=== PATIENT | female | born 1955 | race Caucasian/White ===

== ENCOUNTER → 2016-09-15 | Outpatient (CLI) | payer MEDICARE, MEDICAID ==
[~2016-09-15] MED LIST: ACET-732 PO; ALBU8.5H5 IH; ASPI325T PO; ATOR40TA64 PO; CANA300T PO; DILT180C63 PO; FURO80TA88 PO; INSU100V12 SQ; IOHEXOL 300 MG/ML 100ml INJECTION ONE; LEVA1.253 IH; LORA2TAB2 PO; METF500T7 PO; NAPR220C11 PO; NORMAL SALINE 100 ML ONE; PHEN100C84 PO; POTA20TA87 PO; ROFL500T PO; SALINE FLUSH 10ml SYRINGE ONE; ZINC50TA4 PO
--- NOTE | 2016-09-15 13:16 | DI ---
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 Coronal and sagittal two-dimensional reformats. Automated Exposure Control and Iterative Reconstruction dose reducing techniques were utilized. Contrast: Omnipaque 300 100 mL Findings: Chest: Lungs are stable with some linear scarring in the right middle lobe and left lower lobe. No consolidative pneumonia, pleural effusion or pneumothorax. No new pulmonary nodule or mass appreciated. The central airways are patent. Thyroid gland appears normal. Enlarged right axillary lymph node on axial image #21 measures 1.7 cm in short axis dimension. This is enlarged from the comparison study when it measured 1 cm in short axis dimension. It is however the same size as on the 2015 exam. No other pathologically enlarged axillary or mediastinal lymph nodes. Great vessels are stable. Moderate pericardial effusion is larger than the prior exam. Abdomen: The liver appears normal. The gallbladder is surgically absent. The spleen, pancreas and kidneys are within normal limits. Bilateral benign adrenal masses are again seen and unchanged. No abdominal adenopathy. The visualized small and large bowel loops are within normal limits. Bone windows are stable without focal lytic or blastic osseous lesion. Impression: Interval growth of a right axillary lymph node raising concern for recurrent disease. This lymph node was of a very similar size however on the older comparison study from 2014. .
== END ==
LOC: IMA 10:02
PROVIDERS: ATTEND Physician Assistant
DX: C82.02 Follicular lymphoma grade I, intrathoracic lymph nodes (principal); C82.04 Follicular lymphoma grade I, lymph nodes of axilla and upper limb; R59.0 Localized enlarged lymph nodes
CPT/HCPCS: 71260; 74160; J7050; Q9967

== ENCOUNTER 2017-03-19 15:21 | Inpatient (IN) ==
--- NOTE | 2017-03-19 15:28 | Emergency Department Report ---
Medical Clearance HPI - General Stated complaint: evaluation Time Seen by Provider: 03/19/17 15:27 Source: patient Mode of arrival: ambulatory Limitations: no limitations - History of Present Illness HPI Narrative: Patient is a 62-year-old female, significant psychiatric issues. Patient has been referred to the ER [facility]. Patient is preapproved to be [facility] to [facility], does take Dilantin for seizures, [facility] is requesting medical clearance at this time. Patient has no complaints no chest pain or shortness of breath no cough complaint: medical clearance requested Home medications: Home Medications Medication Instructions Recorded Confirmed Atorvastatin Calcium 40 mg PO HS #90 04/27/15 03/19/17 Albuterol Sulfate [Proair Hfa] 2 puff INH QID PRN 12/02/16 03/19/17 Meclizine [Antivert] 50 mg PO BID PRN 12/02/16 03/19/17 Furosemide [Lasix] 40 mg PO WS 01/03/17 03/19/17 Nicotine Patch [Nicoderm] 21 mg TD DAILY 01/03/17 03/19/17 ARIPiprazole [Aripiprazole] 10 mg PO HS 03/19/17 03/19/17 Acetaminophen [Tylenol] 650 mg PO Q4H PRN 03/19/17 03/19/17 Albuterol/Ipratropium [Duoneb] 1 unit AEROSOL BID 03/19/17 03/19/17 Aspirin 325 mg PO DAILY 03/19/17 03/19/17 Bismuth Subsalicylate [Kaopectate] 524 mg PO Q3H PRN 03/19/17 03/19/17 Cholecalciferol (Vitamin D3) 2,000 unit PO DAILY 03/19/17 03/19/17 [Vitamin D3] Docusate Sodium 500 mg PO DAILY 03/19/17 03/19/17 Gabapentin [Neurontin] 100 mg PO TID 03/19/17 03/19/17 Insulin Detemir [Levemir Flextouch] 22 unit SQ BID 03/19/17 03/19/17 Insulin Lispro [Humalog Kwikpen 20 unit SQ BIDBL 03/19/17 03/19/17 U-100] Insulin Lispro [Humalog Kwikpen 30 unit SQ WS 03/19/17 03/19/17 U-100] LORazepam [Ativan] 2 mg PO Q6H PRN 03/19/17 03/19/17 LORazepam [Ativan] 4 mg PO HS 03/19/17 03/19/17 Losartan Potassium [Cozaar] 50 mg PO BID 03/19/17 03/19/17 Methyl Salicylate/Menthol [Icy Hot 1 applic TOP BID 03/19/17 03/19/17 Cream] Nitroglycerin 0.4 mg SL Q5MIN3 PRN 03/19/17 03/19/17 Omeprazole 20 mg PO DAILY 03/19/17 03/19/17 Peg 3350 238 G Bottle [Miralax] 17 gm PO DAILY 03/19/17 03/19/17 Phenytoin Sodium Extended 400 mg PO BID 03/19/17 03/19/17 Potassium Chloride [K-Tab ER] 20 meq PO BID 03/19/17 03/19/17 Allergies/Adverse reactions: Allergies Allergy/AdvReac Type Severity Reaction Status Date / Time grass pollen Allergy Unknown Verified 03/19/17 15:40 DETERGENT Allergy Unknown PER H&P Uncoded 02/13/17 08:59 PETS Allergy Unknown PER H&P Uncoded 02/13/17 08:59 Review of Systems Constitutional: Denies: fever, chills Eyes: Denies: eye pain, eye discharge ENT: Denies: throat pain, dental pain Cardiovascular: Denies: chest pain, palpitations, dyspnea on exertion Respiratory: Denies: cough, dyspnea, wheezes Gastrointestinal: Denies: abdominal pain, nausea, vomiting Genitourinary: Denies: urgency, dysuria, frequency Musculoskeletal: Denies: back pain, joint swelling, arthralgia Integumentary: Denies: alopecia, change in hair Neurological: Denies: headache, weakness, numbness Psychiatric: Denies: anxiety, depression, suicidal thoughts Endocrine: Denies: fatigue Allergic/Immunologic: Denies: facial swelling PFSH Patient Stated Medical History Cerebrovascular Accident Yes Migraine Yes Seizures Yes Cataracts Yes Hypertension Yes Chronic Obstructive Pulmonary Yes Disease (COPD) Diabetes Mellitus Type 2 Yes Gastroesophageal Reflux Yes Disease Hx Incontinence Yes Osteoarthritis Yes Depression Yes Clinic Medical History (Last Reviewed 12/01/16 @ 09:59 by MATTHEW Luz) Diabetes mellitus (Chronic Medical) Seizure disorder (Chronic Medical) CVA (cerebral vascular accident) (Resolved Medical) COPD (chronic obstructive pulmonary disease) (Chronic Medical) Dyslipidemia (Chronic Medical) Left ventricular hypertrophy (Chronic Medical) PUD (peptic ulcer disease) (Chronic Medical) Esophageal ulcer with bleeding (Resolved Medical) Medical History Updates: BP vs Schizophrenia Surgical History: Gallbladder surgery. Sinus surgery x 2. Screws and metal implant. Family History: Family History (Last Reviewed 12/01/16 @ 09:59 by Coty Balderas [facility]) Father , 72 Primary cancer of bone marrow Mother , 82 No problems noted. Sister Breast cancer Brother , 57 Heart attack - Social History Smoking status: Former smoker Substance use type: does not use Alcohol intake frequency: does not drink Physical Exam - Limitations Limitations: no limitations - General General appearance: alert, in no apparent distress - Eye Eye exam: Present: PERRL, EOMI - ENT ENT exam: Present: normal oropharynx, mucous membranes moist - Neck Neck exam: Present: trachea midline. Absent: tenderness - Chest Chest inspection: Present: symmetric chest wall rise. Absent: tenderness - Respiratory Respiratory exam: Present: normal lung sounds bilaterally. Absent: respiratory distress, wheezes, stridor - Cardiovascular Cardiovascular exam: Present: regular rate, normal rhythm, normal heart sounds - Abdominal Exam Abdominal exam: Present: soft, normal bowel sounds. Absent: distention, tenderness - Skin Skin exam: Present: warm, dry - Neurological Exam Neurological exam: Present: alert, oriented X3 - Psychiatric Psychiatric exam: Present: normal affect, normal mood Course Vital Signs Temperature 98.7 F 03/19/17 15:25 Pulse Rate 81 03/19/17 15:25 Respiratory Rate 16 03/19/17 15:25 Blood Pressure 130/62 03/19/17 15:25 Pulse Oximetry 93 03/19/17 15:25 Temperature 98.7 F 03/19/17 15:25 Pulse Rate 77 03/19/17 17:33 Respiratory Rate 18 03/19/17 17:33 Blood Pressure 130/62 03/19/17 15:25 Pulse Oximetry 93 03/19/17 17:33 Medical Clearance - [facility] Narrative Medical decision making narrative: Patient with elevated phenytoin level at 30.5. Discussed case with Dr. Santiago , given no ataxia and no nystagmus she is comfortable following patient on [facility]. Discuss with the monty Freeman, he will discuss with generations physician. - Medical Records Attestation: I reviewed the patient's medical records. - Lab Data Attestation: I reviewed the patient's lab results. Result diagrams: 03/19/17 16:41 03/19/17 16:41 Lab Results 03/19/17 03/19/17 03/19/17 Range/Units 16:41 16:41 16:41 WBC 9.2 (4.5-11.0) T/MM3 RBC 4.51 (4.00-5.20) M/MM3 Hgb 14.6 (12-16) GM/DL Hct 44.9 (36-46) % MCV 99.6 (80-100) UM3 MCH 32.4 (26-34) UUG MCHC 32.5 (31-37) GM/DL RDW Std Deviation 49.5 (36.9-50.2) FL Plt Count 267 (130-400) T/MM3 MPV 8.8 L (9.4-12.4) UM3 Immature Gran % (Auto) 0.2 (0.0-0.5) % Neut % (Auto) 70.9 H (33-66) % Lymph % (Auto) 19.4 L (23-45) % [place] % (Auto) 8.6 (0-9.0) % Eos % (Auto) 0.7 (0-4) % Baso % (Auto) 0.2 (0-2) % Neut # (Auto) 6.5 (1.8-7.7) T/MM3 Lymph # (Auto) 1.8 (1-4.8) T/MM3 [place] # (Auto) 0.8 (0-0.8) T/MM3 Eos # (Auto) 0.1 (0-0.5) T/MM3 Baso # (Auto) 0.0 (0-0.2) T/MM3 Abs Immat Gran (auto) 0.02 (0.00-0.03) T/MM3 Turbidity < 20 (0-20) Sodium 144 (134-144) MEQ/L Potassium 4.4 (3.6-5) MEQ/L Chloride 104 (98-107) MEQ/L Carbon Dioxide 31 H (22-30) MEQ/L Anion Gap 9 (5-15) MEQ/L BUN 23.0 H (7-17) MG/DL Creatinine 0.8 (0.7-1.2) MG/DL GFR Calculation 73 BUN/Creatinine Ratio 29 H (6-26) RATIO Glucose 74 (65-110) MG/DL Calculated Osmolality 280 (261-280) MOSM/KG Calcium 9.5 (8.4-10.2) MG/DL Total Bilirubin < 0.10 L (0.20-1.30) MG/DL Conjugated Bilirubin 0.00 (0.00-0.30) MG/DL Unconjugated Bilirubin 0.00 (0.00-1.1) MG/DL Icterus Index < 2 (0-7) AST 20 (14-36) U/L ALT 32 (9-52) U/L Alkaline Phosphatase 110 (38-126) U/L Total Protein 7.7 (6.3-8.2) G/DL Albumin 3.7 (3.5-5.0) G/DL Globulin 4.0 H (2.4-3.6) G/DL Albumin/Globulin Ratio 0.9 L (1.1-2.2) RATIO Specimen Hemolysis < 15 (0-25) Ur Collection Type Urine, clean catch Urine Color Yellow (YELLOW) Urine Clarity Clear Urine pH 5.5 (5.0-8.0) Ur Specific [place] 1.025 (1.015-1.025) Urine Protein Trace A (NEGATIVE) Urine Glucose (UA) Negative (NEGATIVE) Urine Ketones 1+ A (NEGATIVE) Urine Occult Blood Negative (NEGATIVE) Urine Nitrate Negative (NEGATIVE) Urine Bilirubin Negative (NEGATIVE) Urine Urobilinogen 0.2 (NORMAL) EU/DL Ur Leukocyte Esterase Negative (NEGATIVE) Urinalysis Comment Microscopic not ind. Phenytoin 30.5 H* (10-20) UG/ML - Radiology Data Attestation: I reviewed the patient's radiology results. Chest x-ray: No acute cardiopulmonary findings CT scan head: No acute intracranial pathology - EKG Data EKG #1 EKG attestation: Yes: I reviewed and interpreted this EKG. Rate: normal Rhythm: NSR [place]/QRS: normal Interpretation: no acute changes Disposition Clinical Impression: Medical clearance for psychiatric admission Disposition: 67 To [facility] Condition: Stable Prescriptions: No Action Atorvastatin Calcium 40 mg PO HS #90 Albuterol Sulfate [Proair Hfa] 2 puff INH QID PRN PRN Reason: Shortness Of Air Furosemide [Lasix] 40 mg PO WS Nitroglycerin 0.4 mg SL Q5MIN3 PRN PRN Reason: Chest Pain LORazepam [Ativan] 2 mg PO Q6H PRN PRN Reason: Anxiety Methyl Salicylate/Menthol [Icy Hot Cream] 1 applic TOP BID Albuterol/Ipratropium [Duoneb] 1 unit AEROSOL BID Insulin Lispro [Humalog Kwikpen U-100] 20 unit SQ BIDBL Insulin Lispro [Humalog Kwikpen U-100] 30 unit SQ WS Peg 3350 238 G Bottle [Miralax] 17 gm PO DAILY LORazepam [Ativan] 4 mg PO HS ARIPiprazole [Aripiprazole] 10 mg PO HS Omeprazole 20 mg PO DAILY Potassium Chloride [K-Tab ER] 20 meq PO BID Losartan Potassium [Cozaar] 50 mg PO BID Docusate Sodium 500 mg PO DAILY Cholecalciferol (Vitamin D3) [Vitamin D3] 2,000 unit PO DAILY Aspirin 325 mg PO DAILY Meclizine [Antivert] 50 mg PO BID PRN PRN Reason: Prn Orders Nicotine Patch [Nicoderm] 21 mg TD DAILY Acetaminophen [Tylenol] 650 mg PO Q4H PRN PRN Reason: Pain Insulin Detemir [Levemir Flextouch] 22 unit SQ BID Gabapentin [Neurontin] 100 mg PO TID Phenytoin Sodium Extended 400 mg PO BID Bismuth Subsalicylate [Kaopectate] 524 mg PO Q3H PRN PRN Reason: Prn Orders Referrals: Edmund Honeycutt MD [Family Provider] - Time of Disposition: 17:38 - Seen By: physician
--- NOTE | 2017-03-19 16:52 | CT Scan Report ---
EXAM: CT head/brain wo con DATE: 03/19/2017 3:41 PM ENCOUNTER: Initial INDICATION: generations evaluation COMPARISON: 11/26/2016 TECHNIQUE: 5 mm axial tomographic images were obtained of the head without contrast. The current CT scan was performed using radiation dose-reduction techniques. FINDINGS: Ill defined hypoattenuations within the periventricular deep white matter, a nonspecific finding, however most suggestive of chronic small vessel ischemic disease. The bronson-white matter junction is otherwise normal. No intra or extra-axial mass or hemorrhage is identified. Dural calcifications incidentally noted. There is no midline shift. Symmetric prominence of the ventricles and cerebral sulci consistent with age appropriate cerebral volume loss. The ventricles are otherwise normal in shape and morphology. The basilar cisterns are patent. No acute osseous or soft tissue abnormality. Mild paranasal sinus disease with postoperative changes of bilateral medial antrectomy. The visualized portions of the orbits and globes are normal. The mastoid air cells are clear. IMPRESSION: 1. No acute intracranial process identified by CT. 2. Age appropriate cerebral volume loss and mild chronic small vessel ischemic disease. 3. Mild paranasal sinus disease with postoperative changes of bilateral medial antrectomy. .
--- NOTE | 2017-03-19 16:53 | XRay Report ---
Indication: generations evaluation Procedure: XR chest 1V: Encounter: Initial Comparison: 12/20/2014 Technique: A single AP view of the chest was obtained. Findings: Lungs and airways: Normal lung volumes. No focal airspace consolidation. Normal pulmonary vasculature. Pleura: No pleural effusion or pneumothorax. Heart and mediastinum: Cardiomegaly. Suspect aortic atherosclerosis. Osseous structures and soft tissues: No acute osseous abnormality is seen. Degenerative disc disease of the thoracic spine. Impression: No acute cardiopulmonary process. .
[2017-03-19] MEDS ORDERED: HALOPERIDOL 5 MG/ML INJECTION IM PRN (19:31)
[2017-03-19] MEDS ORDERED: HALOPERIDOL 0.5 MG TABLET PO PRN (19:31)
[2017-03-19] MEDS ORDERED: LORazepam 0.5 MG TABLET PO PRN (19:31)
[2017-03-19] MEDS ORDERED: NITROGLYCERIN 0.4 MG SUBLINGUAL TABLET SL PRN (19:38)
[2017-03-19] MEDS ORDERED: BISMUTH SUBSALICYLATE 524 MG PO PRN (19:38)
[2017-03-19] MEDS ORDERED: ALBUTEROL 2.5mg/3ml (0.083%) NEB AEROSOL PRN (19:38)
[2017-03-19] MEDS ORDERED: [UNRECOGNIZED DRUG - OTHER] TOP SCH (21:00)
[2017-03-19] MEDS ORDERED: MENTHOL TOP SCH (21:00)
[2017-03-19] MEDS ORDERED: INSULIN DETEMIR 22 UNIT SQ SCH (21:00)
[2017-03-19] MEDS ORDERED: METHYL SALICYLATE TOP SCH (21:00)
[2017-03-19] MEDS ORDERED: NON-FORMULARY MEDICATION 1 EACH EACH (Potassium Chloride [K-Tab Er] 20 MEQ) PO SCH (21:00)
[2017-03-19] MEDS ORDERED: LORazepam 2 MG TABLET PO SCH (21:00)
[2017-03-19] MEDS: MECLIZINE 25 MG TABLET PO PRN (21:47)
[2017-03-19] MEDS: GABAPENTIN 100 MG CAPSULE PO SCH (21:47)
[2017-03-19] MEDS: ARIPiprazole 10 MG TABLET PO SCH ×2 (21:47→21:53)
[2017-03-19] MEDS: LOSARTAN 50 MG TABLET PO SCH (21:47)
[2017-03-19] MEDS: ATORVASTATIN 40 MG TABLET PO SCH (21:48)
[2017-03-20] MEDS: ACETAMINOPHEN 325 MG TABLET PO PRN (00:24)
[2017-03-20 06:04] VITALS: BMI 39.9
[2017-03-20] MEDS ORDERED: INSULIN LISPRO 20 UNIT SQ SCH (08:00)
[2017-03-20] MEDS ORDERED: DOCUSATE SODIUM 100 MG CAPSULE PO SCH (09:00)
[2017-03-20] MEDS ORDERED: NON-FORMULARY MEDICATION 1 EACH EACH (Omeprazole [Omeprazole] 20 MG) PO SCH (09:00)
[2017-03-20] MEDS ORDERED: DOCUSATE SODIUM 500 MG PO SCH (09:00)
[2017-03-20] MEDS ORDERED: INSULIN DETEMIR 100unit/ml INJECTION SQ SCH (09:00)
[2017-03-20] MEDS ORDERED: NON-FORMULARY MEDICATION 1 EACH EACH (Cholecalciferol (Vitamin D3) [Vitamin D3] 2,000 UNIT PO SCH (09:00)
[2017-03-20] MEDS: ALBUTEROL/IPRATROPIUM 2.5mg-0.5mg/3ml NEB AEROSOL SCH ×2 (10:00→20:05)
[2017-03-20] MEDS: OMEPRAZOLE 20 MG CAPSULE PO SCH (11:25)
[2017-03-20] MEDS: ASPIRIN 325 MG TABLET PO SCH (11:27)
[2017-03-20] MEDS: GABAPENTIN 100 MG CAPSULE PO SCH ×3 (11:27→20:34)
[2017-03-20] MEDS: LOSARTAN 50 MG TABLET PO SCH ×2 (11:28→20:38)
[2017-03-20] MEDS: POLYETHYL GLYCOL 3350 17gm PACKET PO SCH (11:30)
[2017-03-20] MEDS: NICOTINE 21 MG PATCH TD SCH (11:30)
[2017-03-20] MEDS: METHYL SALICYLATE/MENTHOL OINT 28gm TP SCH ×2 (11:30→20:36)
[2017-03-20] MEDS: INSULIN ASPART 100unit/ml INJECTION SQ SCH ×2 (11:33→12:05)
[2017-03-20] MEDS: INSULIN DETEMIR 100unit/ml INJECTION SQ SCH ×3 (11:49→21:14)
[2017-03-20] MEDS: MECLIZINE 25 MG TABLET PO PRN (12:08)
[2017-03-20] MEDS ORDERED: LORazepam 1 MG TABLET PO ONE (14:40)
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
[2017-03-20] MEDS ORDERED: INSULIN LISPRO 30 UNIT SQ SCH (17:30)
[2017-03-20] MEDS ORDERED: INSULIN ASPART 100unit/ml INJECTION SQ SCH (17:30)
[2017-03-20] MEDS: FUROSEMIDE 40 MG TABLET PO SCH (17:43)
[2017-03-20] MEDS: ATORVASTATIN 40 MG TABLET PO SCH (20:33)
[2017-03-20] MEDS: ARIPiprazole 10 MG TABLET PO SCH (20:33)
[2017-03-20] MEDS: LORazepam 1 MG TABLET PO SCH (20:35)
[2017-03-20] MEDS: PHENYTOIN 300 MG CAPSULE PO SCH (20:36)
[2017-03-20] MEDS: ARTIFICIAL TEARS 15ml EACH EYE PRN (20:36)
[2017-03-20] MEDS: LOPERAMIDE 2 MG CAPSULE PO PRN (20:37)
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
[2017-03-21] MEDS: OMEPRAZOLE 20 MG CAPSULE PO SCH (05:58)
[2017-03-21] MEDS: ALBUTEROL/IPRATROPIUM 2.5mg-0.5mg/3ml NEB AEROSOL SCH ×3 (09:53→19:10)
[2017-03-21] MEDS: INSULIN ASPART 100unit/ml INJECTION SQ SCH ×4 (10:19→20:30)
[2017-03-21] MEDS: ASPIRIN 325 MG TABLET PO SCH (10:22)
[2017-03-21] MEDS: LOSARTAN 50 MG TABLET PO SCH ×2 (10:23→20:14)
[2017-03-21] MEDS: PHENYTOIN 300 MG CAPSULE PO SCH ×2 (10:23→20:14)
[2017-03-21] MEDS: GABAPENTIN 100 MG CAPSULE PO SCH ×3 (10:23→20:15)
[2017-03-21] MEDS: INSULIN DETEMIR 100unit/ml INJECTION SQ SCH ×2 (10:25→20:15)
[2017-03-21] MEDS: METHYL SALICYLATE/MENTHOL OINT 28gm TP SCH ×2 (10:26→20:16)
[2017-03-21] MEDS: NICOTINE 21 MG PATCH TD SCH (10:26)
[2017-03-21] MEDS: NICOTINE PATCH REMOVAL TD SCH (10:27)
[2017-03-21] MEDS: POLYETHYL GLYCOL 3350 17gm PACKET PO SCH (10:27)
[2017-03-21] MEDS: MECLIZINE 25 MG TABLET PO PRN (10:54)
[2017-03-21] MEDS: LORazepam 1 MG TABLET PO PRN (12:37)
[2017-03-21] MEDS: FUROSEMIDE 40 MG TABLET PO SCH (17:21)
[2017-03-21] MEDS: BISMUTH SUBSALICYLATE 262 MG CHEWABLE TABLET PO PRN (17:22)
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
[2017-03-21] MEDS: ARTIFICIAL TEARS 15ml EACH EYE PRN (18:33)
[2017-03-21] MEDS: LORazepam 1 MG TABLET PO SCH (20:14)
[2017-03-21] MEDS: ATORVASTATIN 40 MG TABLET PO SCH (20:15)
[2017-03-22] MEDS ORDERED: ACETAMINOPHEN 325 MG TABLET PO PRN (03:48)
[2017-03-22] MEDS: ACETAMINOPHEN 325 MG TABLET PO PRN ×2 (03:50→18:23)
[2017-03-22] MEDS: OMEPRAZOLE 20 MG CAPSULE PO SCH (08:02)
[2017-03-22] MEDS ORDERED: ARIPiprazole 5 MG TABLET PO SCH (09:00)
[2017-03-22] MEDS: INSULIN ASPART 100unit/ml INJECTION SQ SCH ×3 (09:20→17:19)
[2017-03-22] MEDS: ASPIRIN 325 MG TABLET PO SCH (09:22)
[2017-03-22] MEDS: PHENYTOIN 300 MG CAPSULE PO SCH ×2 (09:22→20:09)
[2017-03-22] MEDS: ClonazePAM 0.5 MG TABLET PO SCH (09:23)
[2017-03-22] MEDS: LOSARTAN 50 MG TABLET PO SCH ×2 (09:24→20:09)
[2017-03-22] MEDS: DOCUSATE SODIUM 100 MG CAPSULE PO SCH (09:24)
[2017-03-22] MEDS: GABAPENTIN 100 MG CAPSULE PO SCH ×3 (09:24→20:10)
[2017-03-22] MEDS: METHYL SALICYLATE/MENTHOL OINT 28gm TP SCH ×2 (09:25→20:10)
[2017-03-22] MEDS: NICOTINE 21 MG PATCH TD SCH (09:26)
[2017-03-22] MEDS: INSULIN DETEMIR 100unit/ml INJECTION SQ SCH ×2 (09:26→20:13)
[2017-03-22] MEDS: POLYETHYL GLYCOL 3350 17gm PACKET PO SCH (09:27)
[2017-03-22] MEDS: NICOTINE PATCH REMOVAL TD SCH (09:27)
[2017-03-22] MEDS ORDERED: INSULIN ASPART 100unit/ml INJECTION SQ SCH (12:19)
[2017-03-22] MEDS: LOPERAMIDE 2 MG CAPSULE PO PRN (13:12)
--- NOTE | 2017-03-22 15:33 | Progress Note ---
Subjective: Deandre is seen this afternoon following phone call from nursing staff regarding blood sugars. Patient verbalized she feels that she is having episodes of hypoglycemia and reports that she is symptomatic when her sugar is at 70. She has not had any documented episodes of hypoglycemia since the night of 03/20, at which time she was 54. Her evening insulin was adjusted following this time. She is hyperverbal during examination stating she was never on reported insulin on admission, which is Humalog 20 units with breakfast and lunch, 30 units with supper as well as 22 units twice a day of Levemir. She reports that she has never had episodes of hypoglycemia and this is very upsetting to her. She reports that her diet at her prior facility is uncontrolled and that she eats "whatever she wants.". Objective Vital signs: Temperature 97 F 03/22/17 09:22 Pulse Rate 79 03/22/17 09:22 Respiratory Rate 18 03/22/17 09:22 Blood Pressure 130/67 03/22/17 09:22 Pulse Oximetry 93 03/22/17 09:22 Height/Weight/BMI: Height 1.73 m Weight 119.3 kg Body Mass Index 39.9 - Constitutional Present: no acute distress, well nourished, well developed - Routine HEENT Exam Eye: Present: EOMI ENT: Present: mucous membranes moist, dentition normal - Routine Respiratory Exam Present: CTA bilaterally. Absent: wheezes - Routine Cardiovascular Exam Present: RRR, S1, S2. Absent: murmur - Routine Abdominal Exam Present: soft, normoactive bowel sounds, non distended. Absent: tenderness - Routine Skin Exam Present: intact, dry, warm - Routine Neurological Exam Present: alert, oriented X3, CN II-XII intact, moving all extremities - Routine Lymphatic Exam Lymphatic: Absent: adenopathy - Routine Psychiatric Exam Present: anxious, agitated Results - Labs CBC & Chem 7: 03/19/17 16:41 03/19/17 16:41 Assessment and Plan (1) Diabetes mellitus Current visit: Yes Status: Chronic (2) Seizure disorder Current visit: Yes Status: Chronic (3) Depressed bipolar disorder Current visit: Yes Status: Acute Assessment and Plan: Impression Type II diabetes Seizure disorder Schizophrenia History of CVA COPD Dyslipidemia Peptic ulcer disease Esophageal ulcer with bleeding plan Spent approximately 20 minutes of time with patient discussing blood sugars, sliding scale options, Carb control and dietary control. Patient's opinion on insulin treatment. Waxes and wanes between discontinuing all mealtime insulin to utilizing scheduled insulin routinely. Patient claims that she would only receive 14-18 units of Humalog with meals prior to admission, although nursing facility MAR is reviewed and it does reveal 20 units with breakfast, 20 units with lunch, 30 units with supper. Patient finally will agree to 10 units of NovoLog with meals as well as a sliding scale as needed. I suspect this will not be enough insulin and that she will have hyperglycemia. At which time we will need to make adjustments. Continue Dilantin for seizure disorder Hospital Course Summary Disclaimer: The visit summary below is not to be considered part of the above Progress Note. Hospital Course: Impression Elevated Dilantin level Schizoaffective disorder Depression/anxiety Hypertension Diabetes mellitus, type II on insulin.-A1c 5.9 (02/28/17) Seizure disorder -denies following with neuro CVA (cerebral vascular accident) COPD (chronic obstructive pulmonary disease) Dyslipidemia Left ventricular hypertrophy PUD (peptic ulcer disease) GERD/Esophageal ulcer Vitamin D deficiency Tobacco use 03/20/17 Hospitalist consult Agree to [facility] to [facility] for [facility] management and safe environment. She is very worried about having a seizure with her Dilantin being held. I reassured her we will be checking this routinely and will restart the Dilantin when she is within the therapeutic range. Her repeat Dilantin level today is still just slightly elevated. Will recheck again tomorrow. Monitor blood sugars routinely. Will adjust insulin as needed. Continue home medications for her other chronic health problems and continue to monitor. Upon discharge, her care will return to Dr. Henry assuming she returns to [facility] 03/21/17 Psych: Hospitalist is managing phenytoin, which is returning to normal limits. In regards to psych meds, will restart Abilify 5mg PO q AM and Klonopin 0.5mg PO q AM. Will not increase dose of lorazepam and would like to switch HS dose to Klonopin if possible. Patient may have phone from 7-9 pm; will write communication order. Monitor mood, behavior and response to treatment.
[2017-03-22] MEDS: LORazepam 1 MG TABLET PO PRN (15:38)
[2017-03-22] MEDS: MECLIZINE 25 MG TABLET PO PRN (15:45)
[2017-03-22] MEDS: FUROSEMIDE 40 MG TABLET PO SCH (17:18)
--- NOTE | 2017-03-22 17:36 | Neuropsych Progress Note ---
[facility] Subjective Date: 03/22/17 - Sujective/Severity of Illness Medications: Acetaminophen (Tylenol) 650 mg PO Q4H PRN PRN Reason: Pain Last Admin: 03/22/17 03:50 Dose: 650 mg Acetaminophen (Tylenol) 325 mg PO Q5H PRN PRN Reason: Discomfort Albuterol Sulfate (Proventil Neb (0.083%)) 3 mg AEROSOL QID PRN PRN Reason: Shortness of air Albuterol/Ipratropium (Duoneb) 3 ml AEROSOL RTBID [facility] Aripiprazole (Abilify) 5 mg PO DAILY [facility] Last Admin: 03/22/17 09:22 Dose: 5 mg Artificial Tears (Tears Naturale) 1 drops EACH EYE PRN PRN Last Admin: 03/21/17 18:33 Dose: 1 drops Aspirin (Asa) 325 mg PO DAILY [facility] Last Admin: 03/22/17 09:22 Dose: 325 mg Atorvastatin Calcium (Lipitor) 40 mg PO HS [facility] Last Admin: 03/21/17 20:15 Dose: 40 mg Bismuth Subsalicylate (Pepto-Bismol) 524 mg PO Q3H PRN Last Admin: 03/21/17 17:22 Dose: 524 mg Cholecalciferol (Vit. D-3) 2,000 unit PO DAILY [facility] Last Admin: 03/22/17 09:22 Dose: 2,000 unit Clonazepam (Klonopin) 0.5 mg PO DAILY [facility] Last Admin: 03/22/17 09:23 Dose: 0.5 mg Docusate Sodium (Colace) 200 mg PO DAILY [facility] Last Admin: 03/22/17 09:24 Dose: 200 mg Furosemide (Lasix) 40 mg PO WS [facility] Last Admin: 03/22/17 17:18 Dose: 40 mg Gabapentin (Neurontin) 100 mg PO TID [facility] Last Admin: 03/22/17 15:27 Dose: 100 mg Haloperidol (Haldol) 0.5 mg PO Q6H PRN PRN Reason: Extreme agitation Haloperidol Lactate (Haldol) 0.5 mg IM Q6H PRN PRN Reason: Extreme agitation Insulin Aspart (Novolog) 10 unit SQ TIDWM [facility] Last Admin: 03/22/17 17:19 Dose: 10 unit Insulin Aspart (Novolog) 0 unit SQ SS PRN; Protocol PRN Reason: Hyperglycemia Insulin Detemir (Levemir) 20 unit SQ BID [facility] Loperamide HCl (Imodium) 2 mg PO TID PRN PRN Reason: FOR LOOSE STOOLS Last Admin: 03/22/17 13:12 Dose: 2 mg Lorazepam (Ativan Inj) 0.5 mg IM Q6H PRN PRN Reason: Extreme agitation Lorazepam (Ativan) 4 mg PO HS [facility] Last Admin: 03/21/17 20:14 Dose: 4 mg Lorazepam (Ativan) 1 mg PO Q6H PRN PRN Reason: Extreme agitation Last Admin: 03/22/17 15:38 Dose: 1 mg Losartan Potassium (Cozaar) 50 mg PO BID [facility] Last Admin: 03/22/17 09:24 Dose: 50 mg Magnesium Hydroxide (Mom) 30 ml PO DAILY PRN PRN Reason: Constipation Last Admin: 03/22/17 10:44 Dose: 30 ml Meclizine HCl (Antivert) 50 mg PO BID PRN Last Admin: 03/22/17 15:45 Dose: 50 mg Multi-Ingredient Ointment (Analgesic [place]) 1 applic TP BID [facility] Last Admin: 03/22/17 09:25 Dose: 1 applic Nicotine (Nicoderm) 21 mg TD DAILY [facility] Last Admin: 03/22/17 09:26 Dose: 21 mg Nicotine (Nicotine Patch Removal) 1 removal TD DAILY [facility] Last Admin: 03/22/17 09:27 Dose: 1 removal Nitroglycerin (Nitrostat) 0.4 mg SL Q5MIN3 PRN PRN Reason: Chest pain Nystatin (Mycostatin) 1 applic TP BID [facility] Last Admin: 03/22/17 09:56 Dose: 1 applic Omeprazole (Prilosec) 20 mg PO ACB [facility] Last Admin: 03/22/17 08:02 Dose: 20 mg Phenytoin Sodium (Phenytek) 300 mg PO HS [facility] Last Admin: 03/21/17 20:14 Dose: 300 mg Phenytoin Sodium (Phenytek) 300 mg PO WB [facility] Last Admin: 03/22/17 09:22 Dose: 300 mg Polyethylene Glycol (Miralax) 17 gm PO DAILY [facility] Last Admin: 03/22/17 09:27 Dose: 17 gm Potassium Chloride (K-Dur) 20 meq PO BIDWM [facility] Last Admin: 03/22/17 17:18 Dose: 20 meq Subjective: Patient seen and chart reviewed. Case discussed with treatment team. On interview, patient continues to be emotionally labile and demanding. She perseverates on lorazepam through interview. However, she reports that she tolerated lorazepam and Abilify well today without AE. I would like to taper her HS dose of lorazepam if possible and switch her to Klonopin. She admits that she is addicted to lorazepam and says she doesn't care about side effects such as respiratory depression; she would rather if she can't have it. Patient attempts to manipulate by telling me how good my life is, how bad her life is, that I don't care about her because I'm happy, etc. Patient denies any HI or AVH. Patient denies any adverse side effects related to psychotropic medications. Nursing staff report patient has been hyperverbal and demanding, tearful frequently, complaining about similar issues as above throughout the day. Patient slept well overnight. VSS. Patient is eating well. Psychotropic PRNs required in the past 24 hours: none. Start Time: 15:20 Stop Time: 15:40 Mental Status Exam Vitals: Last Vital Signs Temp 97.2 F 03/22/17 16:00 Pulse 78 03/22/17 16:00 Resp 22 03/22/17 16:00 BP 142/83 H 03/22/17 16:00 Pulse Ox 94 03/22/17 16:00 Height: 1.73 m Weight: 119.3 kg - Mental Status Exam Muscle Strength/Tone: Normal Dressing: Casual Grooming: Poor Attitude: Manipulative, Argumentative Motor Activity: Fidgety Eye Contact: Fair Speech: Rapid Volume: Loud Rhythm: Appropriate Rhythm Orientation: Oriented to person, Oriented to place Mood: Anxious, Tearful Affect: Tearful Rate of Thoughts: Pressured Thought Organization: Perseverations (on lorazepam) Associations: Illogical Abstract Reasoning: Poor abstract reasoning Thought Content: Ruminations, Hopelessness, Helplessness, Somatic Concerns Perception/Psychotic: Other Current Hallucinations: Visual (since stroke - true psychosis?) Language: Naming Intact Fund of Knowledge: Other (decreased) Memory: Grossly Intact Suicidal Ideation: Other (States she would prefer to if she cannot have lorazepam scheduled how she would like it) Homicidal Ideation: Denies Insight: Impaired Judgement: Impaired Impulse Control: Poor - Laboratory Result Diagrams: 03/19/17 16:41 03/19/17 16:41 Laboratory Results - last 24 hr 03/21/17 03/21/17 03/22/17 17:12 20:09 04:01 Glucometer 118 150 99 03/22/17 03/22/17 03/22/17 06:05 09:40 12:19 Glucometer 97 187 78 03/22/17 03/22/17 13:49 17:11 Glucometer 135 106 Assessment and Plan (1) Schizoaffective disorder Current visit: Yes Status: Acute (2) Delirium Problem details: due to Phenytoin toxicity - now resolved Current visit: Yes Status: Acute (3) Seizure disorder Current visit: Yes Status: Chronic (4) COPD (chronic obstructive pulmonary disease) Current visit: No Status: Chronic (5) Blurred vision, bilateral Current visit: No Status: Acute (6) Headache Current visit: No Status: Acute (7) Head injury Qualifiers: Encounter type: sequela Qualified Code(s): S09.90XS - Unspecified injury of head, sequela Current visit: Yes Status: Acute Hospital Course Summary Disclaimer: The visit summary below is not to be considered part of the above Progress Note. Hospital Course: Impression Elevated Dilantin level Schizoaffective disorder Depression/anxiety Hypertension Diabetes mellitus, type II on insulin.-A1c 5.9 (02/28/17) Seizure disorder -denies following with neuro CVA (cerebral vascular accident) COPD (chronic obstructive pulmonary disease) Dyslipidemia Left ventricular hypertrophy PUD (peptic ulcer disease) GERD/Esophageal ulcer Vitamin D deficiency Tobacco use 03/20/17 Hospitalist consult Agree to [facility] to [facility] for [facility] management and safe environment. She is very worried about having a seizure with her Dilantin being held. I reassured her we will be checking this routinely and will restart the Dilantin when she is within the therapeutic range. Her repeat Dilantin level today is still just slightly elevated. Will recheck again tomorrow. Monitor blood sugars routinely. Will adjust insulin as needed. Continue home medications for her other chronic health problems and continue to monitor. Upon discharge, her care will return to Dr. Henry assuming she returns to [facility] 03/21/17 Psych: Hospitalist is managing phenytoin, which is returning to normal limits. In regards to psych meds, will restart Abilify 5mg PO q AM and Klonopin 0.5mg PO q AM. Will not increase dose of lorazepam and would like to switch HS dose to Klonopin if possible. Patient may have phone from 7-9 pm; will write communication order. Monitor mood, behavior and response to treatment. 03/22/17 Psych: Increase Abilify to 10mg PO tomorrow and continue other meds how they are. Would like to decrease total daily dose of lorazepam and switch her to Klonopin. 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 Continue to monitor mood, behavior and response to treatment.
[2017-03-22] MEDS: ARIPiprazole 5 MG TABLET PO SCH ×2 (18:15→20:04)
[2017-03-22] MEDS: ALBUTEROL/IPRATROPIUM 2.5mg-0.5mg/3ml NEB AEROSOL SCH (19:35)
[2017-03-22] MEDS: LORazepam 1 MG TABLET PO SCH (20:09)
[2017-03-22] MEDS: ATORVASTATIN 40 MG TABLET PO SCH (20:09)
[2017-03-22] MEDS: INSULIN ASPART 100unit/ml INJECTION SQ PRN (20:15)
[2017-03-23] MEDS: ACETAMINOPHEN 325 MG TABLET PO PRN ×3 (03:07→22:20)
[2017-03-23] MEDS: OMEPRAZOLE 20 MG CAPSULE PO SCH (05:29)
[2017-03-23] MEDS: NICOTINE 21 MG PATCH TD SCH (08:53)
[2017-03-23] MEDS: INSULIN DETEMIR 100unit/ml INJECTION SQ SCH ×2 (08:54→20:08)
[2017-03-23] MEDS: LOSARTAN 50 MG TABLET PO SCH ×2 (08:56→20:08)
[2017-03-23] MEDS: GABAPENTIN 100 MG CAPSULE PO SCH ×3 (08:56→20:07)
[2017-03-23] MEDS: DOCUSATE SODIUM 100 MG CAPSULE PO SCH (08:56)
[2017-03-23] MEDS: ASPIRIN 325 MG TABLET PO SCH (08:57)
[2017-03-23] MEDS: PHENYTOIN 300 MG CAPSULE PO SCH ×2 (08:57→20:07)
[2017-03-23] MEDS: ClonazePAM 0.5 MG TABLET PO SCH (08:57)
[2017-03-23] MEDS: ARIPiprazole 5 MG TABLET PO SCH (08:57)
[2017-03-23] MEDS: METHYL SALICYLATE/MENTHOL OINT 28gm TP SCH ×2 (08:58→21:52)
[2017-03-23] MEDS: NICOTINE PATCH REMOVAL TD SCH (08:58)
[2017-03-23] MEDS: POLYETHYL GLYCOL 3350 17gm PACKET PO SCH (08:59)
[2017-03-23] MEDS: ALBUTEROL/IPRATROPIUM 2.5mg-0.5mg/3ml NEB AEROSOL SCH ×2 (09:43→19:35)
[2017-03-23] MEDS: INSULIN ASPART 100unit/ml INJECTION SQ SCH ×3 (10:00→17:18)
--- NOTE | 2017-03-23 10:03 | Progress Note ---
Progress Note: Deandre is seen this morning however is not examined. Spent time discussing blood sugars and insulin changes. She is wanting BGM checked often as she feels " shaky inside". Suspect this is her anxiety rather than hypoglycemia. No further episodes of hypoglycemia since decreasing insulin. She requests Sleep study as she has been without C-pap for 1 year. Discussed with her that is a study that will need to be done in the outpatient setting with PCP. BGM and care discussed with nursing.
[2017-03-23] MEDS: MECLIZINE 25 MG TABLET PO PRN (10:39)
[2017-03-23] MEDS: LORazepam 1 MG TABLET PO PRN ×2 (12:06→18:26)
[2017-03-23] MEDS: ARTIFICIAL TEARS 15ml EACH EYE PRN (16:19)
[2017-03-23] MEDS: FUROSEMIDE 40 MG TABLET PO SCH (17:18)
--- NOTE | 2017-03-23 17:24 | Neuropsych Progress Note ---
[facility] Subjective Date: 03/23/17 - Sujective/Severity of Illness Medications: Acetaminophen (Tylenol) 650 mg PO Q4H PRN PRN Reason: Pain Last Admin: 03/23/17 14:23 Dose: 650 mg Acetaminophen (Tylenol) 325 mg PO Q5H PRN PRN Reason: Discomfort Albuterol Sulfate (Proventil Neb (0.083%)) 3 mg AEROSOL QID PRN PRN Reason: Shortness of air Albuterol/Ipratropium (Duoneb) [address] [facility] Last Admin: 03/23/17 09:43 Dose: 3 ml Aripiprazole (Abilify) [address] [facility] Last Admin: 03/23/17 08:57 Dose: 10 mg Artificial Tears (Tears Naturale) 1 drops EACH EYE PRN PRN Last Admin: 03/23/17 16:19 Dose: 1 drops Aspirin (Asa) [address] [facility] Last Admin: 03/23/17 08:57 Dose: 325 mg Atorvastatin Calcium (Lipitor) [address] [facility] Last Admin: 03/22/17 20:09 Dose: 40 mg Bismuth Subsalicylate (Pepto-Bismol) 524 mg PO Q3H PRN Last Admin: 03/21/17 17:22 Dose: 524 mg Cholecalciferol (Vit. D-3) 2,[address] [facility] Last Admin: 03/23/17 08:57 Dose: 2,000 unit Clonazepam (Klonopin) 0.[address] [facility] Last Admin: 03/23/17 08:57 Dose: 0.5 mg Docusate Sodium (Colace) [address] [facility] Last Admin: 03/23/17 08:56 Dose: 200 mg Furosemide (Lasix) [address] [facility] Last Admin: 03/23/17 17:18 Dose: 40 mg Gabapentin (Neurontin) [address] [facility] Last Admin: 03/23/17 14:24 Dose: 100 mg Haloperidol (Haldol) 0.5 mg PO Q6H PRN PRN Reason: Extreme agitation Haloperidol Lactate (Haldol) 0.5 mg IM Q6H PRN PRN Reason: Extreme agitation Insulin Aspart (Novolog) [address] [facility] Last Admin: 03/23/17 17:18 Dose: Not Given Insulin Aspart (Novolog) 0 unit SQ SS PRN; Protocol PRN Reason: Hyperglycemia Last Admin: 03/22/17 20:15 Dose: 1 unit Insulin Detemir (Levemir) [address] [facility] Last Admin: 03/23/17 08:54 Dose: 20 unit Loperamide HCl (Imodium) 2 mg PO TID PRN PRN Reason: FOR LOOSE STOOLS Last Admin: 03/22/17 13:12 Dose: 2 mg Lorazepam (Ativan Inj) 0.5 mg IM Q6H PRN PRN Reason: Extreme agitation Lorazepam (Ativan) [address] [facility] Last Admin: 03/22/17 20:09 Dose: 4 mg Lorazepam (Ativan) 1 mg PO Q6H PRN PRN Reason: Extreme agitation Last Admin: 03/23/17 12:06 Dose: 1 mg Losartan Potassium (Cozaar) [address] [facility] Last Admin: 03/23/17 08:56 Dose: 50 mg Magnesium Hydroxide (Mom) 30 ml PO DAILY PRN PRN Reason: Constipation Last Admin: 03/22/17 10:44 Dose: 30 ml Meclizine HCl (Antivert) 50 mg PO BID PRN Last Admin: 03/23/17 10:39 Dose: 50 mg Multi-Ingredient Ointment (Analgesic [place]) [address] [facility] Last Admin: 03/23/17 08:58 Dose: 1 applic Nicotine (Nicoderm) [address] [facility] Last Admin: 03/23/17 08:53 Dose: 21 mg Nicotine (Nicotine Patch Removal) [address] [facility] Last Admin: 03/23/17 08:58 Dose: 1 removal Nitroglycerin (Nitrostat) 0.4 mg SL Q5MIN3 PRN PRN Reason: Chest pain Nystatin (Mycostatin) [address] [facility] Last Admin: 03/23/17 08:58 Dose: 1 applic Omeprazole (Prilosec) [address] [facility] Last Admin: 03/23/17 05:29 Dose: 20 mg Phenytoin Sodium (Phenytek) [address] [facility] Last Admin: 03/22/17 20:09 Dose: 300 mg Phenytoin Sodium (Phenytek) [address] [facility] Last Admin: 03/23/17 08:57 Dose: 300 mg Polyethylene Glycol (Miralax) [address] [facility] Last Admin: 03/23/17 08:59 Dose: 17 gm Potassium Chloride (K-Dur) 20 meq PO BIDWM [facility] Last Admin: 03/23/17 17:18 Dose: 20 meq Subjective: Patient seen and chart reviewed. Case discussed with treatment team. On interview, patient continues to be emotionally labile and demanding. She perseverates on lorazepam through interview. However, she reports that she tolerated lorazepam and Abilify well today without AE. She admits that she is addicted to lorazepam and says she doesn't care about side effects such as respiratory depression; she would rather if she can't have it. Patient attempts to manipulate by telling me how good my life is, how bad her life is, that I don't care about her because I'm happy, etc. She does not appear anxious until she starts talking to me about lorazepam but is resistant to trying other coping skills. The recreational programs director said she eventually willing to try visual/ guided imagery and this seemed to work well. Patient denies any SI, HI or AVH. Patient denies any adverse side effects related to psychotropic medications. Nursing staff report patient has been hyperverbal and demanding, tearful frequently, complaining about similar issues as above throughout the day. Patient slept 6.25 hours overnight. VSS. Patient is eating well. Patient has not had any daytime PRN lorazepam in the past 24 hours. Patient requested CPAP from [facility] last night - will order nocturnal oximetry test tonight but patient has stated it has been years since she used a CPAP. Hospitalist documented that this could be done on an outpatient basis. Start Time: 15:20 Stop Time: 15:40 Mental Status Exam Vitals: Last Vital Signs Temp 97.6 F 03/23/17 16:00 Pulse 76 03/23/17 16:00 Resp 16 03/23/17 16:00 BP 151/66 H 03/23/17 16:00 Pulse Ox 93 03/23/17 16:00 Height: 1.73 m Weight: 119.3 kg - Mental Status Exam Muscle Strength/Tone: Normal Dressing: Casual Grooming: Poor Attitude: Manipulative, Argumentative Motor Activity: Fidgety Eye Contact: Fair Speech: Rapid Volume: Loud Rhythm: Appropriate Rhythm Orientation: Oriented to person, Oriented to place Mood: Anxious, Tearful Rate of Thoughts: Pressured Thought Organization: Perseverations (on lorazepam) Associations: Illogical Abstract Reasoning: Poor abstract reasoning Thought Content: Ruminations, Hopelessness, Helplessness, Somatic Concerns Perception/Psychotic: Other Current Hallucinations: Visual (since stroke - true psychosis?) Language: Naming Intact Fund of Knowledge: Other (decreased) Memory: Grossly Intact Suicidal Ideation: Denies Homicidal Ideation: Denies Insight: Impaired Judgement: Impaired Impulse Control: Poor - Laboratory Result Diagrams: 03/19/17 16:41 03/19/17 16:41 Laboratory Results - last 24 hr 03/22/17 03/23/17 03/23/17 19:53 00:04 03:14 Glucometer 151 224 109 Triglycerides Cholesterol LDL Cholesterol, Calc VLDL Cholesterol HDL Cholesterol Cholesterol/HDL Ratio 03/23/17 03/23/17 03/23/17 05:38 05:39 10:04 Glucometer 131 229 Triglycerides 164 H Cholesterol 196 LDL Cholesterol, Calc 136.2 VLDL Cholesterol 32.8 H HDL Cholesterol 27 L Cholesterol/HDL Ratio 7.3 H 03/23/17 03/23/17 11:49 14:37 Glucometer 117 121 Triglycerides Cholesterol LDL Cholesterol, Calc VLDL Cholesterol HDL Cholesterol Cholesterol/HDL Ratio Assessment and Plan (1) Schizoaffective disorder Current visit: Yes Status: Acute (2) Delirium Problem details: due to Phenytoin toxicity - now resolved Current visit: Yes Status: Acute (3) Seizure disorder Current visit: Yes Status: Chronic (4) COPD (chronic obstructive pulmonary disease) Current visit: No Status: Chronic (5) Blurred vision, bilateral Current visit: No Status: Acute (6) Headache Current visit: No Status: Acute (7) Head injury Qualifiers: Encounter type: sequela Qualified Code(s): S09.90XS - Unspecified injury of head, sequela Current visit: Yes Status: Acute Hospital Course Summary Disclaimer: The visit summary below is not to be considered part of the above Progress Note. Hospital Course: Impression Elevated Dilantin level Schizoaffective disorder Depression/anxiety Hypertension Diabetes mellitus, type II on insulin.-A1c 5.9 (02/28/17) Seizure disorder -denies following with neuro CVA (cerebral vascular accident) COPD (chronic obstructive pulmonary disease) Dyslipidemia Left ventricular hypertrophy PUD (peptic ulcer disease) GERD/Esophageal ulcer Vitamin D deficiency Tobacco use 03/20/17 Hospitalist consult Agree to [facility] for [facility] management and safe environment. She is very worried about having a seizure with her Dilantin being held. I reassured her we will be checking this routinely and will restart the Dilantin when she is within the therapeutic range. Her repeat Dilantin level today is still just slightly elevated. Will recheck again tomorrow. Monitor blood sugars routinely. Will adjust insulin as needed. Continue home medications for her other chronic health problems and continue to monitor. Upon discharge, her care will return to Dr. Henry assuming she returns to [facility] 03/21/17 Psych: Hospitalist is managing phenytoin, which is returning to normal limits. In regards to psych meds, will restart Abilify 5mg PO q AM and Klonopin 0.5mg PO q AM. Will not increase dose of lorazepam and would like to switch HS dose to Klonopin if possible. Patient may have phone from 7-9 pm; will write communication order. Monitor mood, behavior and response to treatment. 03/22/17 Psych: Increase Abilify to 10mg PO tomorrow and continue other meds how they are. Would like to decrease total daily dose of lorazepam and switch her to Klonopin. 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 Continue to monitor mood, behavior and response to treatment. 03/23/17 Psych: Continue Abilify 10mg PO daily and Klonopin 0.5mg PO q AM; would like to decrease total daily dose of lorazepam and switch her to Klonopin. 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 Will order overnight oximetry tonight. Continue to monitor mood , behavior and response to treatment.
[2017-03-23] MEDS: LORazepam 1 MG TABLET PO SCH (20:07)
[2017-03-23] MEDS: ATORVASTATIN 40 MG TABLET PO SCH (20:07)
[2017-03-24] MEDS: OMEPRAZOLE 20 MG CAPSULE PO SCH (06:47)
[2017-03-24] MEDS: LOSARTAN 50 MG TABLET PO SCH ×2 (08:40→20:15)
[2017-03-24] MEDS: NICOTINE 21 MG PATCH TD SCH (08:41)
[2017-03-24] MEDS: ARIPiprazole 5 MG TABLET PO SCH (08:41)
[2017-03-24] MEDS: ClonazePAM 0.5 MG TABLET PO SCH (08:41)
[2017-03-24] MEDS: PHENYTOIN 300 MG CAPSULE PO SCH ×2 (08:41→20:16)
[2017-03-24] MEDS: ASPIRIN 325 MG TABLET PO SCH (08:41)
[2017-03-24] MEDS: DOCUSATE SODIUM 100 MG CAPSULE PO SCH (08:41)
[2017-03-24] MEDS: POLYETHYL GLYCOL 3350 17gm PACKET PO SCH (08:43)
[2017-03-24] MEDS: METHYL SALICYLATE/MENTHOL OINT 28gm TP SCH ×2 (08:43→20:16)
[2017-03-24] MEDS: INSULIN ASPART 100unit/ml INJECTION SQ SCH ×3 (08:44→16:52)
[2017-03-24] MEDS: GABAPENTIN 100 MG CAPSULE PO SCH (08:44)
[2017-03-24] MEDS: NICOTINE PATCH REMOVAL TD SCH (08:44)
[2017-03-24] MEDS: INSULIN DETEMIR 100unit/ml INJECTION SQ SCH ×2 (08:44→21:59)
[2017-03-24] MEDS: ALBUTEROL/IPRATROPIUM 2.5mg-0.5mg/3ml NEB AEROSOL SCH ×2 (09:00→20:15)
[2017-03-24] MEDS: ACETAMINOPHEN 325 MG TABLET PO PRN (09:27)
--- NOTE | 2017-03-24 10:17 | Neuropsych Progress Note ---
[facility] Subjective Date: 03/24/17 - Sujective/Severity of Illness Medications: Acetaminophen (Tylenol) 650 mg PO Q4H PRN PRN Reason: Pain Last Admin: 03/24/17 09:27 Dose: 650 mg Acetaminophen (Tylenol) 325 mg PO Q5H PRN PRN Reason: Discomfort Albuterol Sulfate (Proventil Neb (0.083%)) 3 mg AEROSOL QID PRN PRN Reason: Shortness of air Albuterol/Ipratropium (Duoneb) 3 ml AEROSOL RTBID [facility] Last Admin: 03/24/17 09:00 Dose: 3 ml Aripiprazole (Abilify) 10 mg PO DAILY [facility] Last Admin: 03/24/17 08:41 Dose: 10 mg Artificial Tears (Tears Naturale) 1 drops EACH EYE PRN PRN Last Admin: 03/23/17 16:19 Dose: 1 drops Aspirin (Asa) 325 mg PO DAILY [facility] Last Admin: 03/24/17 08:41 Dose: 325 mg Atorvastatin Calcium (Lipitor) 40 mg PO HS [facility] Last Admin: 03/23/17 20:07 Dose: 40 mg Bismuth Subsalicylate (Pepto-Bismol) 524 mg PO Q3H PRN Last Admin: 03/21/17 17:22 Dose: 524 mg Cholecalciferol (Vit. D-3) 2,000 unit PO DAILY [facility] Last Admin: 03/24/17 08:41 Dose: 2,000 unit Clonazepam (Klonopin) 0.5 mg PO DAILY [facility] Last Admin: 03/24/17 08:41 Dose: 0.5 mg Docusate Sodium (Colace) 200 mg PO DAILY [facility] Last Admin: 03/24/17 08:41 Dose: 200 mg Furosemide (Lasix) 40 mg PO WS [facility] Last Admin: 03/23/17 17:18 Dose: 40 mg Gabapentin (Neurontin) 100 mg PO TID [facility] Last Admin: 03/24/17 08:44 Dose: 100 mg Haloperidol (Haldol) 0.5 mg PO Q6H PRN PRN Reason: Extreme agitation Haloperidol Lactate (Haldol) 0.5 mg IM Q6H PRN PRN Reason: Extreme agitation Insulin Aspart (Novolog) 10 unit SQ TIDWM [facility] Last Admin: 03/24/17 08:44 Dose: 10 unit Insulin Aspart (Novolog) 0 unit SQ SS PRN; Protocol PRN Reason: Hyperglycemia Last Admin: 03/22/17 20:15 Dose: 1 unit Insulin Detemir (Levemir) 20 unit SQ BID [facility] Last Admin: 03/24/17 08:44 Dose: 20 unit Loperamide HCl (Imodium) 2 mg PO TID PRN PRN Reason: FOR LOOSE STOOLS Last Admin: 03/22/17 13:12 Dose: 2 mg Lorazepam (Ativan Inj) 0.5 mg IM Q6H PRN PRN Reason: Extreme agitation Lorazepam (Ativan) 4 mg PO HS [facility] Last Admin: 03/23/17 20:07 Dose: 4 mg Lorazepam (Ativan) 1 mg PO Q6H PRN PRN Reason: Extreme agitation Last Admin: 03/23/17 18:26 Dose: 1 mg Losartan Potassium (Cozaar) 50 mg PO BID [facility] Last Admin: 03/24/17 08:40 Dose: 50 mg Magnesium Hydroxide (Mom) 30 ml PO DAILY PRN PRN Reason: Constipation Last Admin: 03/22/17 10:44 Dose: 30 ml Meclizine HCl (Antivert) 50 mg PO BID PRN Last Admin: 03/23/17 10:39 Dose: 50 mg Multi-Ingredient Ointment (Analgesic [place]) 1 applic TP BID [facility] Last Admin: 03/24/17 08:43 Dose: 1 applic Nicotine (Nicoderm) 21 mg TD DAILY [facility] Last Admin: 03/24/17 08:41 Dose: 21 mg Nicotine (Nicotine Patch Removal) 1 removal TD DAILY [facility] Last Admin: 03/24/17 08:44 Dose: 1 removal Nitroglycerin (Nitrostat) 0.4 mg SL Q5MIN3 PRN PRN Reason: Chest pain Nystatin (Mycostatin) 1 applic TP BID [facility] Last Admin: 03/24/17 08:43 Dose: 1 applic Omeprazole (Prilosec) 20 mg PO ACB [facility] Last Admin: 03/24/17 06:47 Dose: 20 mg Phenytoin Sodium (Phenytek) 300 mg PO HS [facility] Last Admin: 03/23/17 20:07 Dose: 300 mg Phenytoin Sodium (Phenytek) 300 mg PO WB [facility] Last Admin: 03/24/17 08:41 Dose: 300 mg Polyethylene Glycol (Miralax) 17 gm PO DAILY [facility] Last Admin: 03/24/17 08:43 Dose: 17 gm Potassium Chloride (K-Dur) 20 meq PO BIDWM [facility] Last Admin: 03/24/17 08:41 Dose: 20 meq Subjective: Patient seen and chart reviewed. Nursing reports pt continues to have somatic complaints and is focused on meds. Sleeping well and has a good appetite. on face to face the pt is focused on benzos. She states she needs her Ativan increased. We had a long conversation that we feels she is on to much Ativan and the reasons it should be decreased which pt did not agree with. She reports feeling anxious and some depression. Denies S/I. Start Time: 09:45 Stop Time: 10:00 Mental Status Exam Vitals: Last Vital Signs Temp 97.6 F 03/24/17 08:00 Pulse 74 03/24/17 08:00 Resp 20 03/24/17 08:50 BP 128/66 03/24/17 08:00 Pulse Ox 96 03/24/17 08:50 Height: 1.73 m Weight: 119.3 kg - Mental Status Exam Muscle Strength/Tone: Normal Dressing: Casual Grooming: Poor Attitude: Manipulative, Argumentative Motor Activity: Fidgety Eye Contact: Fair Speech: Rapid Volume: Loud Rhythm: Appropriate Rhythm Orientation: Oriented to person, Oriented to place Mood: Anxious, Tearful Rate of Thoughts: Pressured Thought Organization: Perseverations (on lorazepam) Associations: Illogical Abstract Reasoning: Poor abstract reasoning Thought Content: Ruminations, Hopelessness, Helplessness, Somatic Concerns Perception/Psychotic: Other Current Hallucinations: Visual (since stroke - true psychosis?) Language: Naming Intact Fund of Knowledge: Other (decreased) Memory: Grossly Intact Suicidal Ideation: Denies Homicidal Ideation: Denies Insight: Impaired Judgement: Impaired Impulse Control: Poor - Laboratory Result Diagrams: 03/19/17 16:41 03/19/17 16:41 Laboratory Results - last 24 hr 03/23/17 03/23/17 03/23/17 11:49 14:37 17:05 Glucometer 117 121 96 03/23/17 03/23/17 03/23/17 18:35 19:48 22:07 Glucometer 161 158 122 Assessment and Plan (1) Seizure disorder Current visit: Yes Status: Chronic (2) COPD (chronic obstructive pulmonary disease) Current visit: No Status: Chronic (3) Headache Current visit: No Status: Acute (4) Blurred vision, bilateral Current visit: No Status: Acute (5) Delirium Problem details: due to Phenytoin toxicity - now resolved Current visit: Yes Status: Acute (6) Schizoaffective disorder Current visit: Yes Status: Acute (7) Head injury Qualifiers: Encounter type: sequela Qualified Code(s): S09.90XS - Unspecified injury of head, sequela Current visit: Yes Status: Acute Hospital Course Summary Disclaimer: The visit summary below is not to be considered part of the above Progress Note. Hospital Course: Impression Elevated Dilantin level Schizoaffective disorder Depression/anxiety Hypertension Diabetes mellitus, type II on insulin.-A1c 5.9 (02/28/17) Seizure disorder -denies following with neuro CVA (cerebral vascular accident) COPD (chronic obstructive pulmonary disease) Dyslipidemia Left ventricular hypertrophy PUD (peptic ulcer disease) GERD/Esophageal ulcer Vitamin D deficiency Tobacco use 03/20/17 Hospitalist consult Agree to [facility] management and safe environment. She is very worried about having a seizure with her Dilantin being held. I reassured her we will be checking this routinely and will restart the Dilantin when she is within the therapeutic range. Her repeat Dilantin level today is still just slightly elevated. Will recheck again tomorrow. Monitor blood sugars routinely. Will adjust insulin as needed. Continue home medications for her other chronic health problems and continue to monitor. Upon discharge, her care will return to Dr. Henry assuming she returns to [facility] 03/21/17 Psych: Hospitalist is managing phenytoin, which is returning to normal limits. In regards to psych meds, will restart Abilify 5mg PO q AM and Klonopin 0.5mg PO q AM. Will not increase dose of lorazepam and would like to switch HS dose to Klonopin if possible. Patient may have phone from 7-9 pm; will write communication order. Monitor mood, behavior and response to treatment. 03/22/17 Psych: Increase Abilify to 10mg PO tomorrow and continue other meds how they are. Would like to decrease total daily dose of lorazepam and switch her to Klonopin. 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 Continue to monitor mood, behavior and response to treatment. 03/23/17 Psych: Continue Abilify 10mg PO daily and Klonopin 0.5mg PO q AM; would like to decrease total daily dose of lorazepam and switch her to Klonopin. 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 Will order overnight oximetry tonight. Continue to monitor mood , behavior and response to treatment. 03/24/17 10:16 Pt remains focused on Ativan. Will increase Gabapentin to 300mg PO TID to help with anxiety
[2017-03-24] MEDS: BISMUTH SUBSALICYLATE 262 MG CHEWABLE TABLET PO PRN ×2 (12:35→16:49)
[2017-03-24] MEDS: MECLIZINE 25 MG TABLET PO PRN (15:08)
[2017-03-24] MEDS: GABAPENTIN 300 MG CAPSULE PO SCH ×2 (15:09→20:13)
[2017-03-24] MEDS: FUROSEMIDE 40 MG TABLET PO SCH (16:53)
[2017-03-24] MEDS: LORazepam 1 MG TABLET PO SCH (20:14)
[2017-03-24] MEDS: ATORVASTATIN 40 MG TABLET PO SCH (20:15)
[2017-03-24] MEDS: ARTIFICIAL TEARS 15ml EACH EYE PRN (20:18)
[2017-03-24] MEDS: MAG-AL + SIM ORAL LIQUID 30ml PO PRN (20:44)
[2017-03-25] MEDS: ACETAMINOPHEN 325 MG TABLET PO PRN ×2 (04:56→20:39)
[2017-03-25] MEDS: OMEPRAZOLE 20 MG CAPSULE PO SCH (05:36)
[2017-03-25] MEDS: NICOTINE 21 MG PATCH TD SCH (08:01)
[2017-03-25] MEDS: POLYETHYL GLYCOL 3350 17gm PACKET PO SCH (08:01)
[2017-03-25] MEDS: ARTIFICIAL TEARS 15ml EACH EYE PRN ×2 (08:01→18:12)
[2017-03-25] MEDS: DOCUSATE SODIUM 100 MG CAPSULE PO SCH (08:01)
[2017-03-25] MEDS: ARIPiprazole 5 MG TABLET PO SCH (08:02)
[2017-03-25] MEDS: INSULIN DETEMIR 100unit/ml INJECTION SQ SCH ×3 (08:02→20:40)
[2017-03-25] MEDS: GABAPENTIN 300 MG CAPSULE PO SCH ×3 (08:03→20:38)
[2017-03-25] MEDS: ASPIRIN 325 MG TABLET PO SCH (08:03)
[2017-03-25] MEDS: ClonazePAM 0.5 MG TABLET PO SCH (08:03)
[2017-03-25] MEDS: METHYL SALICYLATE/MENTHOL OINT 28gm TP SCH ×2 (08:04→20:41)
[2017-03-25] MEDS: NICOTINE PATCH REMOVAL TD SCH (08:05)
[2017-03-25] MEDS: LOSARTAN 50 MG TABLET PO SCH ×2 (08:05→20:38)
[2017-03-25] MEDS: PHENYTOIN 300 MG CAPSULE PO SCH ×2 (08:05→20:38)
[2017-03-25] MEDS: ALBUTEROL/IPRATROPIUM 2.5mg-0.5mg/3ml NEB AEROSOL SCH ×2 (09:41→20:15)
--- NOTE | 2017-03-25 10:32 | Neuropsych Progress Note ---
[facility] Subjective Date: 03/25/17 - Sujective/Severity of Illness Medications: Acetaminophen (Tylenol) 650 mg PO Q4H PRN PRN Reason: Pain Last Admin: 03/25/17 04:56 Dose: 650 mg Acetaminophen (Tylenol) 325 mg PO Q5H PRN PRN Reason: Discomfort Al Hydroxide/Mg Hydroxide (Maalox Plus) 30 ml PO Q4H PRN PRN Reason: Indigestion Last Admin: 03/24/17 20:44 Dose: 30 ml Albuterol Sulfate (Proventil Neb (0.083%)) 3 mg AEROSOL QID PRN PRN Reason: Shortness of air Albuterol/Ipratropium (Duoneb) 3 ml AEROSOL RTBID [facility] Last Admin: 03/25/17 09:41 Dose: Not Given Aripiprazole (Abilify) 10 mg PO DAILY [facility] Last Admin: 03/25/17 08:02 Dose: 10 mg Artificial Tears (Tears Naturale) 1 drops EACH EYE PRN PRN Last Admin: 03/25/17 08:01 Dose: 1 drops Aspirin (Asa) 325 mg PO DAILY [facility] Last Admin: 03/25/17 08:03 Dose: 325 mg Atorvastatin Calcium (Lipitor) 40 mg PO HS [facility] Last Admin: 03/24/17 20:15 Dose: 40 mg Bismuth Subsalicylate (Pepto-Bismol) 524 mg PO Q3H PRN Last Admin: 03/24/17 16:49 Dose: 262 mg Cholecalciferol (Vit. D-3) 2,000 unit PO DAILY [facility] Last Admin: 03/25/17 08:03 Dose: 2,000 unit Clonazepam (Klonopin) 0.5 mg PO DAILY [facility] Last Admin: 03/25/17 08:03 Dose: 0.5 mg Docusate Sodium (Colace) 200 mg PO DAILY [facility] Last Admin: 03/25/17 08:01 Dose: 200 mg Furosemide (Lasix) 40 mg PO WS [facility] Last Admin: 03/24/17 16:53 Dose: 40 mg Gabapentin (Neurontin) 300 mg PO TID [facility] Last Admin: 03/25/17 08:03 Dose: 300 mg Haloperidol (Haldol) 0.5 mg PO Q6H PRN PRN Reason: Extreme agitation Haloperidol Lactate (Haldol) 0.5 mg IM Q6H PRN PRN Reason: Extreme agitation Insulin Aspart (Novolog) 10 unit SQ TIDWM [facility] Last Admin: 03/24/17 16:52 Dose: 10 unit Insulin Aspart (Novolog) 0 unit SQ SS PRN; Protocol PRN Reason: Hyperglycemia Last Admin: 03/22/17 20:15 Dose: 1 unit Insulin Detemir (Levemir) 20 unit SQ BID [facility] Last Admin: 03/25/17 08:02 Dose: 20 unit Loperamide HCl (Imodium) 2 mg PO TID PRN PRN Reason: FOR LOOSE STOOLS Last Admin: 03/22/17 13:12 Dose: 2 mg Lorazepam (Ativan Inj) 0.5 mg IM Q6H PRN PRN Reason: Extreme agitation Lorazepam (Ativan) 4 mg PO HS [facility] Last Admin: 03/24/17 20:14 Dose: 4 mg Lorazepam (Ativan) 1 mg PO Q6H PRN PRN Reason: Extreme agitation Last Admin: 03/23/17 18:26 Dose: 1 mg Losartan Potassium (Cozaar) 50 mg PO BID [facility] Last Admin: 03/25/17 08:05 Dose: 50 mg Magnesium Hydroxide (Mom) 30 ml PO DAILY PRN PRN Reason: Constipation Last Admin: 03/22/17 10:44 Dose: 30 ml Meclizine HCl (Antivert) 50 mg PO BID PRN Last Admin: 03/24/17 15:08 Dose: 50 mg Multi-Ingredient Ointment (Analgesic [place]) 1 applic TP BID [facility] Last Admin: 03/25/17 08:04 Dose: 1 applic Nicotine (Nicoderm) 21 mg TD DAILY [facility] Last Admin: 03/25/17 08:01 Dose: 21 mg Nicotine (Nicotine Patch Removal) 1 removal TD DAILY [facility] Last Admin: 03/25/17 08:05 Dose: 1 removal Nitroglycerin (Nitrostat) 0.4 mg SL Q5MIN3 PRN PRN Reason: Chest pain Nystatin (Mycostatin) 1 applic TP BID [facility] Last Admin: 03/25/17 08:04 Dose: 1 applic Omeprazole (Prilosec) 20 mg PO ACB [facility] Last Admin: 03/25/17 05:36 Dose: 20 mg Phenytoin Sodium (Phenytek) 300 mg PO HS [facility] Last Admin: 10/14/17 20:16 Dose: 300 mg Phenytoin Sodium (Phenytek) 300 mg PO WB [facility] Last Admin: 03/25/17 08:05 Dose: 300 mg Polyethylene Glycol (Miralax) 17 gm PO DAILY [facility] Last Admin: 03/25/17 08:01 Dose: 17 gm Potassium Chloride (K-Dur) 20 meq PO BIDWM [facility] Last Admin: 03/25/17 08:03 Dose: 20 meq Subjective: Patient seen and chart reviewed. Nursing reports pt continues to have somatic complaints but is sleeping well and has a good appetite. On face to face the pt is seen sleeping in bed. When she awakens she immediately starts to talk about her anxiety and needing her Ativan back. She reports having racing thoughts. Some depression but denies S/I. Again pt is focused on getting her Ativan increased. Start Time: 09:45 Stop Time: 10:00 Mental Status Exam Vitals: Last Vital Signs Temp 97.8 F 03/25/17 08:00 Pulse 72 03/25/17 08:00 Resp 22 03/25/17 08:00 BP 113/62 03/25/17 08:00 Pulse Ox 93 03/25/17 08:00 Height: 1.73 m Weight: 119.3 kg - Mental Status Exam Muscle Strength/Tone: Normal Dressing: Casual Grooming: Poor Attitude: Manipulative, Argumentative Motor Activity: Fidgety Eye Contact: Fair Speech: Normal Volume: Normal Rhythm: Appropriate Rhythm Orientation: Oriented to person, Oriented to place Mood: Neutral, Anxious Rate of Thoughts: Appropriate Rate Thought Organization: Perseverations (on lorazepam) Associations: Intact Abstract Reasoning: Poor abstract reasoning Thought Content: Ruminations, Somatic Concerns Perception/Psychotic: Perception Normal Language: Naming Intact Fund of Knowledge: Poor fund of knowledge Memory: Grossly Intact Suicidal Ideation: Denies Homicidal Ideation: Denies Insight: Impaired Judgement: Impaired Impulse Control: Poor - Laboratory Result Diagrams: 03/19/17 16:41 03/19/17 16:41 Laboratory Results - last 24 hr 03/24/17 03/24/17 03/24/17 08:04 11:40 14:44 Glucometer 161 115 131 03/24/17 03/24/17 17:12 21:08 Glucometer 124 144 Assessment and Plan (1) Seizure disorder Current visit: Yes Status: Chronic (2) COPD (chronic obstructive pulmonary disease) Current visit: No Status: Chronic (3) Headache Current visit: No Status: Acute (4) Blurred vision, bilateral Current visit: No Status: Acute (5) Delirium Problem details: due to Phenytoin toxicity - now resolved Current visit: Yes Status: Acute (6) Schizoaffective disorder Current visit: Yes Status: Acute (7) Head injury Qualifiers: Encounter type: sequela Qualified Code(s): S09.90XS - Unspecified injury of head, sequela Current visit: Yes Status: Acute Hospital Course Summary Disclaimer: The visit summary below is not to be considered part of the above Progress Note. Hospital Course: Impression Elevated Dilantin level Schizoaffective disorder Depression/anxiety Hypertension Diabetes mellitus, type II on insulin.-A1c 5.9 (02/28/17) Seizure disorder -denies following with neuro CVA (cerebral vascular accident) COPD (chronic obstructive pulmonary disease) Dyslipidemia Left ventricular hypertrophy PUD (peptic ulcer disease) GERD/Esophageal ulcer Vitamin D deficiency Tobacco use 03/20/17 Hospitalist consult Agree to admission to [facility] for psychiatric management and safe environment. She is very worried about having a seizure with her Dilantin being held. I reassured her we will be checking this routinely and will restart the Dilantin when she is within the therapeutic range. Her repeat Dilantin level today is still just slightly elevated. Will recheck again tomorrow. Monitor blood sugars routinely. Will adjust insulin as needed. Continue home medications for her other chronic health problems and continue to monitor. Upon discharge, her care will return to Dr. Henry assuming she returns to [facility] 03/21/17 Psych: Hospitalist is managing phenytoin, which is returning to normal limits. In regards to psych meds, will restart Abilify 5mg PO q AM and Klonopin 0.5mg PO q AM. Will not increase dose of lorazepam and would like to switch HS dose to Klonopin if possible. Patient may have phone from 7-9 pm; will write communication order. Monitor mood, behavior and response to treatment. 03/22/17 Psych: Increase Abilify to 10mg PO tomorrow and continue other meds how they are. Would like to decrease total daily dose of lorazepam and switch her to Klonopin. 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 Continue to monitor mood, behavior and response to treatment. 03/23/17 Psych: Continue Abilify 10mg PO daily and Klonopin 0.5mg PO q AM; would like to decrease total daily dose of lorazepam and switch her to Klonopin. 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 Will order overnight oximetry tonight. Continue to monitor mood , behavior and response to treatment. 03/24/17 10:16 Pt remains focused on Ativan. Will increase Gabapentin to 300mg PO TID to help with anxiety 03/25/17 10:33 Pt continues to report anxiety and ask for more Ativan. Discussed at this time we could not use more than 4mg per day and if pt wanted some during thee day we would need to decrease her HS dose. Pt in agreement. Will D/C Clonazepam and start Ativan 0.5mg PO BID at 0900 and 1500 and 3mg at HS. Start Trazodone 50mg at HS to help with sleep
[2017-03-25] MEDS: INSULIN ASPART 100unit/ml INJECTION SQ SCH ×3 (10:55→17:17)
[2017-03-25] MEDS: LORazepam 1 MG TABLET PO PRN ×2 (10:55→18:12)
[2017-03-25] MEDS: LORazepam 0.5 MG TABLET PO SCH (14:17)
[2017-03-25] MEDS ORDERED: ACETAMINOPHEN 325 MG TABLET PO PRN (14:19)
--- NOTE | 2017-03-25 16:37 | Progress Note ---
Subjective: Deandre is seen today in follow up. She is resting quietly- jumps awake when I approached her. She speaks rapidly, and a bit nonsensically. She is speaking about a shower, but I cannot understand her train of thought. Chart is reviewed- pt. remains fixated on Ativan frequently. Objective Vital signs: Temperature 97.4 F 03/25/17 16:00 Pulse Rate 75 03/25/17 16:00 Respiratory Rate 22 03/25/17 16:00 Blood Pressure 115/58 03/25/17 16:00 Pulse Oximetry 95 03/25/17 16:00 Height/Weight/BMI: Height 1.73 m Weight 119.3 kg Body Mass Index 39.9 - Constitutional Present: no acute distress, obese, cooperative - Routine HEENT Exam Eye: Present: EOMI, PERRL - Routine Respiratory Exam Present: CTA bilaterally. Absent: rales, rhonchi, crackles - Routine Cardiovascular Exam Present: RRR, S1, S2, no murmur - Routine Abdominal Exam Present: soft, normoactive bowel sounds, non distended, non tender - Routine Extremities Exam Present: non tender, full ROM - Routine Back/Spine/Pelvis Exam Back/Spine: Present: full ROM - Routine Musculoskeletal Exam Musculoskeletal: Present: normal strength, no joint swelling - Routine Skin Exam Present: intact, dry, warm - Routine Neurological Exam Present: alert, moving all extremities - Routine Psychiatric Exam Present: anxious. Absent: good insight, good judgment Results - Labs CBC & Chem 7: 03/19/17 16:41 03/19/17 16:41 Labs: Laboratory Results - last 24 hr 03/24/17 03/24/17 03/25/17 17:12 21:08 10:56 Glucometer 124 144 101 Assessment and Plan (1) Diabetes mellitus Current visit: Yes Status: Chronic (2) Seizure disorder Current visit: Yes Status: Chronic (3) Depressed bipolar disorder Current visit: Yes Status: Acute GI Prophylaxis: other (PPI) Resuscitation Status: Full Code Assessment and Plan: Impression: Type II diabetes Seizure disorder Schizophrenia History of CVA COPD Dyslipidemia Peptic ulcer disease Esophageal ulcer with bleeding plan 03/25/17 She appears fairly stable medically. BG is fairly well controlled. Her main concern is getting Ativan regularly. Will plan to assess labs in AM. B12 is low on screening labs- will start IM replacement. Vitals reviewed- BP is controlled. Hospital Course Summary Disclaimer: The visit summary below is not to be considered part of the above Progress Note. Hospital Course: Impression Elevated Dilantin level Schizoaffective disorder Depression/anxiety Hypertension Diabetes mellitus, type II on insulin.-A1c 5.9 (02/28/17) Seizure disorder -denies following with neuro CVA (cerebral vascular accident) COPD (chronic obstructive pulmonary disease) Dyslipidemia Left ventricular hypertrophy PUD (peptic ulcer disease) GERD/Esophageal ulcer Vitamin D deficiency Tobacco use 03/20/17 Hospitalist consult Agree to admission to [facility] for psychiatric management and safe environment. She is very worried about having a seizure with her Dilantin being held. I reassured her we will be checking this routinely and will restart the Dilantin when she is within the therapeutic range. Her repeat Dilantin level today is still just slightly elevated. Will recheck again tomorrow. Monitor blood sugars routinely. Will adjust insulin as needed. Continue home medications for her other chronic health problems and continue to monitor. Upon discharge, her care will return to Dr. Henry assuming she returns to [facility] 03/21/17 Psych: Hospitalist is managing phenytoin, which is returning to normal limits. In regards to psych meds, will restart Abilify 5mg PO q AM and Klonopin 0.5mg PO q AM. Will not increase dose of lorazepam and would like to switch HS dose to Klonopin if possible. Patient may have phone from 7-9 pm; will write communication order. Monitor mood, behavior and response to treatment. 03/22/17 Psych: Increase Abilify to 10mg PO tomorrow and continue other meds how they are. Would like to decrease total daily dose of lorazepam and switch her to Klonopin. 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 Continue to monitor mood, behavior and response to treatment. 03/23/17 Psych: Continue Abilify 10mg PO daily and Klonopin 0.5mg PO q AM; would like to decrease total daily dose of lorazepam and switch her to Klonopin. 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 Will order overnight oximetry tonight. Continue to monitor mood , behavior and response to treatment. 03/24/17 10:16 Pt remains focused on Ativan. Will increase Gabapentin to 300mg PO TID to help with anxiety 03/25/17 10:33 Pt continues to report anxiety and ask for more Ativan. Discussed at this time we could not use more than 4mg per day and if pt wanted some during thee day we would need to decrease her HS dose. Pt in agreement. Will D/C Clonazepam and start Ativan 0.5mg PO BID at 0900 and 1500 and 3mg at HS. Start Trazodone 50mg at HS to help with sleep 03/25/17 16:39 03/25/17 She appears fairly stable medically. BG is fairly well controlled. Her main concern is getting Ativan regularly. Will plan to assess labs in AM. B12 is low on screening labs- will start IM replacement. Vitals reviewed- BP is controlled.
[2017-03-25] MEDS: FUROSEMIDE 40 MG TABLET PO SCH (17:18)
[2017-03-25] MEDS: CYANOCOBALAMIN (B-12) 1,000mcg/ml INJECTION IM SCH (17:19)
[2017-03-25] MEDS: MECLIZINE 25 MG TABLET PO PRN (18:12)
[2017-03-25] MEDS: MAG-AL + SIM ORAL LIQUID 30ml PO PRN (19:00)
[2017-03-25] MEDS: ATORVASTATIN 40 MG TABLET PO SCH (20:38)
[2017-03-25] MEDS: LORazepam 1 MG TABLET PO SCH (20:38)
[2017-03-26] MEDS: OMEPRAZOLE 20 MG CAPSULE PO SCH (06:00)
[2017-03-26] MEDS: ACETAMINOPHEN 325 MG TABLET PO PRN (06:14)
--- NOTE | 2017-03-26 08:47 | Progress Note ---
Progress Note: Check phenytoin level. Pt initially came in with elevated level. She is currently receiving 300BID. Last level was still slightly elevated.
[2017-03-26] MEDS: INSULIN ASPART 100unit/ml INJECTION SQ SCH ×3 (08:48→18:05)
[2017-03-26] MEDS: PHENYTOIN 300 MG CAPSULE PO SCH ×2 (08:50→20:34)
[2017-03-26] MEDS: ASPIRIN 325 MG TABLET PO SCH (08:50)
[2017-03-26] MEDS: ARIPiprazole 5 MG TABLET PO SCH (08:50)
[2017-03-26] MEDS: INSULIN DETEMIR 100unit/ml INJECTION SQ SCH ×2 (08:51→20:30)
[2017-03-26] MEDS: GABAPENTIN 300 MG CAPSULE PO SCH ×3 (08:51→20:39)
[2017-03-26] MEDS: DOCUSATE SODIUM 100 MG CAPSULE PO SCH (08:51)
[2017-03-26] MEDS: CYANOCOBALAMIN (B-12) 1,000mcg/ml INJECTION IM SCH (08:51)
[2017-03-26] MEDS: LORazepam 0.5 MG TABLET PO SCH ×2 (08:52→14:28)
[2017-03-26] MEDS: LOSARTAN 50 MG TABLET PO SCH ×2 (08:53→20:34)
[2017-03-26] MEDS: NICOTINE PATCH REMOVAL TD SCH (08:54)
[2017-03-26] MEDS: NICOTINE 21 MG PATCH TD SCH (08:54)
[2017-03-26] MEDS: METHYL SALICYLATE/MENTHOL OINT 28gm TP SCH ×2 (08:55→20:32)
[2017-03-26] MEDS: POLYETHYL GLYCOL 3350 17gm PACKET PO SCH (08:55)
[2017-03-26] MEDS: ALBUTEROL/IPRATROPIUM 2.5mg-0.5mg/3ml NEB AEROSOL SCH ×2 (09:40→22:21)
[2017-03-26] MEDS: ARTIFICIAL TEARS 15ml EACH EYE PRN ×2 (12:37→22:18)
[2017-03-26] MEDS: FUROSEMIDE 40 MG TABLET PO SCH (14:28)
[2017-03-26] MEDS: ACETAMINOPHEN 500 MG TABLET PO PRN ×2 (15:57→20:47)
--- NOTE | 2017-03-26 17:23 | Neuropsych Progress Note ---
[facility] Subjective Date: 03/26/17 - Sujective/Severity of Illness Medications: Acetaminophen (Tylenol) 1,000 mg PO Q6H PRN PRN Reason: Discomfort Last Admin: 03/26/17 15:57 Dose: 1,000 mg Al Hydroxide/Mg Hydroxide (Maalox Plus) 30 ml PO Q4H PRN PRN Reason: Indigestion Last Admin: 03/25/17 19:00 Dose: 30 ml Albuterol Sulfate (Proventil Neb (0.083%)) 3 mg AEROSOL QID PRN PRN Reason: Shortness of air Albuterol/Ipratropium (Duoneb) 3 ml AEROSOL RTBID [facility] Last Admin: 03/26/17 09:40 Dose: 3 ml Aripiprazole (Abilify) 10 mg PO DAILY [facility] Last Admin: 03/26/17 08:50 Dose: 10 mg Artificial Tears (Tears Naturale) 1 drops EACH EYE PRN PRN Last Admin: 03/26/17 12:37 Dose: 1 drops Aspirin (Asa) 325 mg PO DAILY [facility] Last Admin: 03/26/17 08:50 Dose: 325 mg Atorvastatin Calcium (Lipitor) 40 mg PO HS [facility] Last Admin: 03/25/17 20:38 Dose: 40 mg Bismuth Subsalicylate (Pepto-Bismol) 524 mg PO Q3H PRN Last Admin: 03/24/17 16:49 Dose: 262 mg Cholecalciferol (Vit. D-3) 2,000 unit PO DAILY [facility] Last Admin: 03/26/17 08:50 Dose: 2,000 unit Cyanocobalamin (Vit. B-12) 1,000 mcg IM DAILY [facility] Stop: 03/31/17 09:01 Last Admin: 03/26/17 08:51 Dose: 1,000 mcg Cyanocobalamin (Vit. B-12) 1,000 mcg IM Q7D [facility] Stop: 04/28/17 09:01 Cyanocobalamin (Vit. B-12) 1,000 mcg IM Q30D [facility] Docusate Sodium (Colace) 200 mg PO DAILY [facility] Last Admin: 03/26/17 08:51 Dose: 200 mg Furosemide (Lasix) 40 mg PO 1500 [facility] Last Admin: 03/26/17 14:28 Dose: 40 mg Gabapentin (Neurontin) 300 mg PO TID [facility] Last Admin: 03/26/17 14:28 Dose: 300 mg Haloperidol (Haldol) 0.5 mg PO Q6H PRN PRN Reason: Extreme agitation Haloperidol Lactate (Haldol) 0.5 mg IM Q6H PRN PRN Reason: Extreme agitation Insulin Aspart (Novolog) 10 unit SQ TIDWM [facility] Last Admin: 03/26/17 11:55 Dose: 10 unit Insulin Aspart (Novolog) 0 unit SQ SS PRN; Protocol PRN Reason: Hyperglycemia Last Admin: 03/22/17 20:15 Dose: 1 unit Insulin Detemir (Levemir) 20 unit SQ BID [facility] Last Admin: 03/26/17 08:51 Dose: 20 unit Loperamide HCl (Imodium) 2 mg PO TID PRN PRN Reason: FOR LOOSE STOOLS Last Admin: 03/22/17 13:12 Dose: 2 mg Lorazepam (Ativan Inj) 0.5 mg IM Q6H PRN PRN Reason: Extreme agitation Lorazepam (Ativan) 1 mg PO Q6H PRN PRN Reason: Extreme agitation Last Admin: 03/25/17 18:12 Dose: 1 mg Lorazepam (Ativan) 3 mg PO HS [facility] Last Admin: 03/25/17 20:38 Dose: 3 mg Lorazepam (Ativan) 0.5 mg PO 0900,1500 [facility] Last Admin: 03/26/17 14:28 Dose: 0.5 mg Losartan Potassium (Cozaar) 50 mg PO BID [facility] Last Admin: 03/26/17 08:53 Dose: 50 mg Magnesium Hydroxide (Mom) 30 ml PO DAILY PRN PRN Reason: Constipation Last Admin: 03/25/17 21:09 Dose: 30 ml Meclizine HCl (Antivert) 50 mg PO BID PRN Last Admin: 03/25/17 18:12 Dose: 50 mg Multi-Ingredient Ointment (Analgesic [place]) 1 applic TP BID [facility] Last Admin: 03/26/17 08:55 Dose: 1 applic Nicotine (Nicoderm) 21 mg TD DAILY [facility] Last Admin: 03/26/17 08:54 Dose: 21 mg Nicotine (Nicotine Patch Removal) 1 removal TD DAILY [facility] Last Admin: 03/26/17 08:54 Dose: 1 removal Nitroglycerin (Nitrostat) 0.4 mg SL Q5MIN3 PRN PRN Reason: Chest pain Nystatin (Mycostatin) 1 applic TP BID [facility] Last Admin: 03/26/17 08:54 Dose: 1 applic Omeprazole (Prilosec) 20 mg PO ACB [facility] Last Admin: 03/26/17 06:00 Dose: 20 mg Phenytoin Sodium (Phenytek) 300 mg PO HS [facility] Last Admin: 03/25/17 20:38 Dose: 300 mg Phenytoin Sodium (Phenytek) 300 mg PO WB [facility] Last Admin: 03/26/17 08:50 Dose: 300 mg Polyethylene Glycol (Miralax) 17 gm PO DAILY [facility] Last Admin: 03/26/17 08:55 Dose: 17 gm Potassium Chloride (K-Dur) 20 meq PO BIDWM [facility] Last Admin: 03/26/17 08:50 Dose: 20 meq Trazodone HCl (Desyrel) 50 mg PO HS [facility] Subjective: Patient seen and chart reviewed. Nursing reports pt is doing a little better. She continues to have somatic concerns and requests Ativan and [place]. On face to face the pt states she is anxious although she was quietly watching TV just before. She continues to focus on an increase in Ativan. She reports her mood is fairly stable and she denies any S/I. Tolerating meds Start Time: 17:00 Stop Time: 17:15 Mental Status Exam Vitals: Last Vital Signs Temp 97.7 F 03/26/17 16:00 Pulse 72 03/26/17 16:00 Resp 16 03/26/17 16:00 BP 127/67 03/26/17 16:00 Pulse Ox 92 03/26/17 16:00 Height: 1.73 m Weight: 119.3 kg - Mental Status Exam Muscle Strength/Tone: Normal Dressing: Casual Grooming: Poor Attitude: Manipulative, Argumentative Motor Activity: Fidgety Eye Contact: Fair Speech: Normal Volume: Normal Rhythm: Appropriate Rhythm Orientation: Oriented to person, Oriented to place Mood: Neutral, Anxious Rate of Thoughts: Appropriate Rate Thought Organization: Perseverations (on lorazepam) Associations: Intact Abstract Reasoning: Poor abstract reasoning Thought Content: Ruminations, Somatic Concerns Perception/Psychotic: Perception Normal Current Hallucinations: Visual (since stroke - true psychosis?) Language: Naming Intact Fund of Knowledge: Poor fund of knowledge Memory: Grossly Intact Suicidal Ideation: Denies Homicidal Ideation: Denies Insight: Impaired Judgement: Impaired Impulse Control: Poor - Laboratory Result Diagrams: 03/26/17 06:11 03/26/17 06:11 Laboratory Results - last 24 hr 03/26/17 03/26/17 03/26/17 06:10 06:11 06:11 WBC 7.4 RBC 3.95 L Hgb 13.0 Hct 40.1 MCV 101.5 H MCH 32.9 MCHC 32.4 RDW Std Deviation 48.7 Plt Count 215 MPV 9.2 L Immature Gran % (Auto) 0.1 Neut % (Auto) 64.3 Lymph % (Auto) 26.0 [place] % (Auto) 7.2 Eos % (Auto) 2.0 Baso % (Auto) 0.4 Neut # (Auto) 4.7 Lymph # (Auto) 1.9 [place] # (Auto) 0.5 Eos # (Auto) 0.2 Baso # (Auto) 0.0 Abs Immat Gran (auto) 0.01 Turbidity < 20 Sodium 144 Potassium 4.2 Chloride 102 Carbon Dioxide 36 H Anion Gap 6 BUN 22.0 H Creatinine 0.7 GFR Calculation 85 BUN/Creatinine Ratio 31 H Glucose 102 Glucometer 89 Calculated Osmolality 280 Calcium 9.1 Icterus Index < 2 Specimen Hemolysis < 15 Phenytoin 03/26/17 03/26/17 06:11 11:53 WBC RBC Hgb Hct MCV MCH MCHC RDW Std Deviation Plt Count MPV Immature Gran % (Auto) Neut % (Auto) Lymph % (Auto) [place]on % (Auto) Eos % (Auto) Baso % (Auto) Neut # (Auto) Lymph # (Auto) [place] # (Auto) Eos # (Auto) Baso # (Auto) Abs Immat Gran (auto) Turbidity Sodium Potassium Chloride Carbon Dioxide Anion Gap BUN Creatinine GFR Calculation BUN/Creatinine Ratio Glucose Glucometer 105 Calculated Osmolality Calcium Icterus Index Specimen Hemolysis Phenytoin 15.9 Assessment and Plan (1) Seizure disorder Current visit: Yes Status: Chronic (2) COPD (chronic obstructive pulmonary disease) Current visit: No Status: Chronic (3) Headache Current visit: No Status: Acute (4) Blurred vision, bilateral Current visit: No Status: Acute (5) Delirium Problem details: due to Phenytoin toxicity - now resolved Current visit: Yes Status: Acute (6) Schizoaffective disorder Current visit: Yes Status: Acute (7) Head injury Qualifiers: Encounter type: sequela Qualified Code(s): S09.90XS - Unspecified injury of head, sequela Current visit: Yes Status: Acute Hospital Course Summary Disclaimer: The visit summary below is not to be considered part of the above Progress Note. Hospital Course: Impression Elevated Dilantin level Schizoaffective disorder Depression/anxiety Hypertension Diabetes mellitus, type II on insulin.-A1c 5.9 (02/28/17) Seizure disorder -denies following with neuro CVA (cerebral vascular accident) COPD (chronic obstructive pulmonary disease) Dyslipidemia Left ventricular hypertrophy PUD (peptic ulcer disease) GERD/Esophageal ulcer Vitamin D deficiency Tobacco use 03/20/17 Hospitalist consult Agree to admission to [facility] for [facility] management and safe environment. She is very worried about having a seizure with her Dilantin being held. I reassured her we will be checking this routinely and will restart the Dilantin when she is within the therapeutic range. Her repeat Dilantin level today is still just slightly elevated. Will recheck again tomorrow. Monitor blood sugars routinely. Will adjust insulin as needed. Continue home medications for her other chronic health problems and continue to monitor. Upon discharge, her care will return to Dr. Henry assuming she returns to [facility] 03/21/17 Psych: Hospitalist is managing phenytoin, which is returning to normal limits. In regards to psych meds, will restart Abilify 5mg PO q AM and Klonopin 0.5mg PO q AM. Will not increase dose of lorazepam and would like to switch HS dose to Klonopin if possible. Patient may have phone from 7-9 pm; will write communication order. Monitor mood, behavior and response to treatment. 03/22/17 Psych: Increase Abilify to 10mg PO tomorrow and continue other meds how they are. Would like to decrease total daily dose of lorazepam and switch her to Klonopin. 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 Continue to monitor mood, behavior and response to treatment. 03/23/17 Psych: Continue Abilify 10mg PO daily and Klonopin 0.5mg PO q AM; would like to decrease total daily dose of lorazepam and switch her to Klonopin. 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 Will order overnight oximetry tonight. Continue to monitor mood , behavior and response to treatment. 03/24/17 10:16 Pt remains focused on Ativan. Will increase Gabapentin to 300mg PO TID to help with anxiety 03/25/17 10:33 Pt continues to report anxiety and ask for more Ativan. Discussed at this time we could not use more than 4mg per day and if pt wanted some during thee day we would need to decrease her HS dose. Pt in agreement. Will D/C Clonazepam and start Ativan 0.5mg PO BID at 0900 and 1500 and 3mg at HS. Start Trazodone 50mg at HS to help with sleep 03/25/17 16:39 03/25/17 She appears fairly stable medically. BG is fairly well controlled. Her main concern is getting Ativan regularly. Will plan to assess labs in AM. B12 is low on screening labs- will start IM replacement. Vitals reviewed- BP is controlled. 03/26/17 17:22 PT improving. Continue current care
[2017-03-26] MEDS: LORazepam 1 MG TABLET PO SCH (20:33)
[2017-03-26] MEDS: ATORVASTATIN 40 MG TABLET PO SCH (20:34)
[2017-03-26] MEDS: TRAZODONE 50 MG TABLET PO SCH (20:37)
[2017-03-26] MEDS: INSULIN ASPART 100unit/ml INJECTION SQ PRN (21:51)
[2017-03-27] MEDS: ACETAMINOPHEN 500 MG TABLET PO PRN ×4 (06:42→22:58)
[2017-03-27] MEDS: OMEPRAZOLE 20 MG CAPSULE PO SCH (06:42)
[2017-03-27] MEDS: PHENYTOIN 300 MG CAPSULE PO SCH ×2 (09:12→20:42)
[2017-03-27] MEDS: ASPIRIN 325 MG TABLET PO SCH (09:12)
[2017-03-27] MEDS: NICOTINE 21 MG PATCH TD SCH (09:13)
[2017-03-27] MEDS: GABAPENTIN 300 MG CAPSULE PO SCH ×3 (09:13→20:42)
[2017-03-27] MEDS: DOCUSATE SODIUM 100 MG CAPSULE PO SCH (09:13)
[2017-03-27] MEDS: LOSARTAN 50 MG TABLET PO SCH ×2 (09:13→20:42)
[2017-03-27] MEDS: LORazepam 0.5 MG TABLET PO SCH ×2 (09:13→16:36)
[2017-03-27] MEDS: ARIPiprazole 5 MG TABLET PO SCH (09:13)
[2017-03-27] MEDS: POLYETHYL GLYCOL 3350 17gm PACKET PO SCH ×2 (09:14→09:44)
[2017-03-27] MEDS: NICOTINE PATCH REMOVAL TD SCH (09:15)
[2017-03-27] MEDS: METHYL SALICYLATE/MENTHOL OINT 28gm TP SCH ×2 (09:15→20:41)
[2017-03-27] MEDS: CYANOCOBALAMIN (B-12) 1,000mcg/ml INJECTION IM SCH (09:16)
[2017-03-27] MEDS: BISMUTH SUBSALICYLATE 262 MG CHEWABLE TABLET PO PRN (09:17)
[2017-03-27] MEDS: INSULIN ASPART 100unit/ml INJECTION SQ SCH ×4 (09:17→17:41)
[2017-03-27] MEDS: INSULIN DETEMIR 100unit/ml INJECTION SQ SCH ×3 (09:42→23:16)
[2017-03-27] MEDS: ALBUTEROL/IPRATROPIUM 2.5mg-0.5mg/3ml NEB AEROSOL SCH ×2 (10:15→20:15)
[2017-03-27] MEDS: MAG-AL + SIM ORAL LIQUID 30ml PO PRN (12:29)
--- NOTE | 2017-03-27 16:25 | Discharge Instructions ---
Discharge Plan - Med Rec/Dispo Referrals/Follow Up: Hudson Henry MD [Other] (Dr. Rina Henry will see patient on rounds at the facility for Hosp. follow-up. . JOHANA Uriarte will see pattient on rounds for Mental Health follow-up. ) Additional Instructions: Discharge Diagnosis: Schizoaffective Disorder Reasons for Admission: Very demanding, argumentative, and manipulative with staff at [facility]. Made several calls to the local police department. IN CASE OF PSYCHIATRIC EMERGENCY, CONTACT [facility] AT [phone] ( available 24 hrs daily). Prescriptions: New Gabapentin [Neurontin] 300 mg PO TID #90 cap LORazepam [Ativan] 0.5 mg PO 0900,1500 #60 tablet Trazodone [Desyrel] 50 mg PO HS #30 tab LORazepam [Ativan] 1 mg PO Q6H PRN tablet PRN Reason: Extreme Agitation Continue LORazepam [Ativan] 4 mg PO HS ARIPiprazole [Aripiprazole] 10 mg PO HS #30 tab Discontinued LORazepam [Ativan] 2 mg PO Q6H PRN PRN Reason: Anxiety Gabapentin [Neurontin] 100 mg PO TID No Action Atorvastatin Calcium 40 mg PO HS #90 Albuterol Sulfate [Proair Hfa] 2 puff INH QID PRN PRN Reason: Shortness Of Air Furosemide [Lasix] 40 mg PO WS Nitroglycerin 0.4 mg SL Q5MIN3 PRN PRN Reason: Chest Pain Methyl Salicylate/Menthol [Icy Hot Cream] 1 applic TOP BID Albuterol/Ipratropium [Duoneb] 1 unit AEROSOL BID Insulin Lispro [Humalog Kwikpen U-100] 20 unit SQ BIDBL Insulin Lispro [Humalog Kwikpen U-100] 30 unit SQ WS Peg 3350 238 G Bottle [Miralax] 17 gm PO DAILY Omeprazole 20 mg PO DAILY Potassium Chloride [K-Tab ER] 20 meq PO BID Losartan Potassium [Cozaar] 50 mg PO BID Docusate Sodium 500 mg PO DAILY Cholecalciferol (Vitamin D3) [Vitamin D3] 2,000 unit PO DAILY Aspirin 325 mg PO DAILY Meclizine [Antivert] 50 mg PO BID PRN PRN Reason: Prn Orders Nicotine Patch [Nicoderm] 21 mg TD DAILY Acetaminophen [Tylenol] 650 mg PO Q4H PRN PRN Reason: Pain Insulin Detemir [Levemir Flextouch] 22 unit SQ BID Phenytoin Sodium Extended 400 mg PO BID Bismuth Subsalicylate [Kaopectate] 524 mg PO Q3H PRN PRN Reason: Prn Orders Discharge Instructions/Outpatient Orders: Provider Discharge Instructions Location: Determined By Patient - Disposition [address] [facility] Home/Facility
--- NOTE | 2017-03-27 16:30 | Extended Care Facility Orders ---
Admission Orders Admit to:: Other Allergies/Adverse Reactions: Allergies grass pollen Allergy (Unknown, Verified 03/19/17 15:40) DETERGENT Allergy (Unknown, Uncoded 02/13/17 08:59) PER H&P PETS Allergy (Unknown, Uncoded 02/13/17 08:59) PER H&P Admitting Diagnosis: Psychosis Admitting Physician: Norma Salguero MD Attending Physician: Norma Salguero MD Code Status: Full Code Rehab Potential: fair Rehab Prognosis: fair Diet: ADA May use Facility Protocol or Standing Orders: Yes May have flu vaccine: Yes Evaluations/Treatment: as needed Fpc Certification: I certify that SNF services are required to be given on an Inpatient basis because of the patients need for custodial care on a continuing basis for the condition(s) for which he/she received inpatient hospital services prior to his/her transfer to the SNF. SNF inpatient care is necessary for the following reasons Indication for Fpc: Not Applicable - Additional Information Resident is Aware of Diagnosis: Yes Referrals: Hudson Henry MD [Other] (Dr. Rina Henry will see patient on rounds at the facility for Hosp. follow-up. . JOHANA Uriarte will see pattient on rounds for Mental Health follow-up. )
[2017-03-27] MEDS: FUROSEMIDE 40 MG TABLET PO SCH (16:36)
--- NOTE | 2017-03-27 16:44 | Neuropsych Progress Note ---
[facility] Subjective Date: 03/27/17 - Sujective/Severity of Illness Medications: Acetaminophen (Tylenol) 1,000 mg PO Q6H PRN PRN Reason: Discomfort Last Admin: 03/27/17 16:36 Dose: 1,000 mg Al Hydroxide/Mg Hydroxide (Maalox Plus) 30 ml PO Q4H PRN PRN Reason: Indigestion Last Admin: 03/27/17 12:29 Dose: 30 ml Albuterol Sulfate (Proventil Neb (0.083%)) 3 mg AEROSOL QID PRN PRN Reason: Shortness of air Albuterol/Ipratropium (Duoneb) 3 ml AEROSOL RTBID [facility] Last Admin: 03/27/17 10:15 Dose: Not Given Aripiprazole (Abilify) 10 mg PO DAILY [facility] Last Admin: 03/27/17 09:13 Dose: 10 mg Artificial Tears (Tears Naturale) 1 drops EACH EYE PRN PRN Last Admin: 03/26/17 22:18 Dose: 1 drops Aspirin (Asa) 325 mg PO DAILY [facility] Last Admin: 03/27/17 09:12 Dose: 325 mg Atorvastatin Calcium (Lipitor) 40 mg PO HS [facility] Last Admin: 03/26/17 20:34 Dose: 40 mg Bismuth Subsalicylate (Pepto-Bismol) 524 mg PO Q3H PRN Last Admin: 03/27/17 09:17 Dose: 524 mg Cholecalciferol (Vit. D-3) 2,000 unit PO DAILY [facility] Last Admin: 03/27/17 09:12 Dose: 2,000 unit Cyanocobalamin (Vit. B-12) 1,000 mcg IM DAILY [facility] Stop: 03/31/17 09:01 Last Admin: 03/27/17 09:16 Dose: 1,000 mcg Cyanocobalamin (Vit. B-12) 1,000 mcg IM Q7D [facility] Stop: 04/28/17 09:01 Cyanocobalamin (Vit. B-12) 1,000 mcg IM Q30D [facility] Docusate Sodium (Colace) 200 mg PO DAILY [facility] Last Admin: 03/27/17 09:13 Dose: 200 mg Furosemide (Lasix) 40 mg PO 1500 [facility] Last Admin: 03/27/17 16:36 Dose: 40 mg Gabapentin (Neurontin) 300 mg PO TID [facility] Last Admin: 03/27/17 16:37 Dose: 300 mg Haloperidol (Haldol) 0.5 mg PO Q6H PRN PRN Reason: Extreme agitation Haloperidol Lactate (Haldol) 0.5 mg IM Q6H PRN PRN Reason: Extreme agitation Insulin Aspart (Novolog) 10 unit SQ TIDWM [facility] Last Admin: 03/27/17 12:28 Dose: Not Given Insulin Aspart (Novolog) 0 unit SQ SS PRN; Protocol PRN Reason: Hyperglycemia Last Admin: 03/26/17 21:51 Dose: 1 unit Insulin Detemir (Levemir) 20 unit SQ BID [facility] Last Admin: 03/27/17 09:42 Dose: 20 unit Loperamide HCl (Imodium) 2 mg PO TID PRN PRN Reason: FOR LOOSE STOOLS Last Admin: 03/22/17 13:12 Dose: 2 mg Lorazepam (Ativan Inj) 0.5 mg IM Q6H PRN PRN Reason: Extreme agitation Lorazepam (Ativan) 1 mg PO Q6H PRN PRN Reason: Extreme agitation Last Admin: 03/25/17 18:12 Dose: 1 mg Lorazepam (Ativan) 3 mg PO HS [facility] Last Admin: 03/26/17 20:33 Dose: 3 mg Lorazepam (Ativan) 0.5 mg PO 0900,1500 [facility] Last Admin: 03/27/17 16:36 Dose: 0.5 mg Losartan Potassium (Cozaar) 50 mg PO BID [facility] Last Admin: 03/27/17 09:13 Dose: 50 mg Magnesium Hydroxide (Mom) 30 ml PO DAILY PRN PRN Reason: Constipation Last Admin: 03/25/17 21:09 Dose: 30 ml Meclizine HCl (Antivert) 50 mg PO BID PRN Last Admin: 03/25/17 18:12 Dose: 50 mg Multi-Ingredient Ointment (Analgesic [place]) 1 applic TP BID [facility] Last Admin: 03/27/17 09:15 Dose: 1 applic Nicotine (Nicoderm) 21 mg TD DAILY [facility] Last Admin: 03/27/17 09:13 Dose: 21 mg Nicotine (Nicotine Patch Removal) 1 removal TD DAILY [facility] Last Admin: 03/27/17 09:15 Dose: 1 removal Nitroglycerin (Nitrostat) 0.4 mg SL Q5MIN3 PRN PRN Reason: Chest pain Nystatin (Mycostatin) 1 applic TP BID [facility] Last Admin: 03/27/17 09:14 Dose: 1 applic Omeprazole (Prilosec) 20 mg PO ACB [facility] Last Admin: 03/27/17 06:42 Dose: 20 mg Phenytoin Sodium (Phenytek) 300 mg PO HS [facility] Last Admin: 03/26/17 20:34 Dose: 300 mg Phenytoin Sodium (Phenytek) 300 mg PO WB [facility] Last Admin: 03/27/17 09:12 Dose: 300 mg Polyethylene Glycol (Miralax) 17 gm PO DAILY [facility] Last Admin: 03/27/17 09:44 Dose: Not Given Potassium Chloride (K-Dur) 20 meq PO BIDWM [facility] Last Admin: 03/27/17 09:12 Dose: 20 meq Trazodone HCl (Desyrel) 50 mg PO HS [facility] Last Admin: 03/26/17 20:37 Dose: 50 mg Subjective: Patient seen and chart reviewed. Nursing reports pt is doing well on the unit. On face to face the pt states she is feeling better. less somatic and less focused on Ativan. She reports her mood is improved and she denies any S/I. Sleeping better with Trazodone. Denies psychotic symptoms. Tolerating meds. Feels safe for D/C Start Time: 16:15 Stop Time: 16:30 Mental Status Exam Vitals: Last Vital Signs Temp 98.4 F 03/27/17 16:00 Pulse 70 03/27/17 16:00 Resp 20 03/27/17 16:00 BP 128/60 03/27/17 16:00 Pulse Ox 96 03/27/17 16:00 Height: 1.73 m Weight: 119.3 kg - Mental Status Exam Muscle Strength/Tone: Normal Dressing: Casual Grooming: Poor Attitude: Cooperative Motor Activity: Normal Eye Contact: Fair Speech: Normal Volume: Normal Rhythm: Appropriate Rhythm Orientation: Oriented to person, Oriented to place Mood: Neutral, Anxious Rate of Thoughts: Appropriate Rate Thought Organization: Perseverations (on lorazepam) Associations: Intact Abstract Reasoning: Intact, able to abstract Thought Content: Ruminations, Somatic Concerns Perception/Psychotic: Perception Normal Language: Naming Intact Fund of Knowledge: Poor fund of knowledge Memory: Grossly Intact Suicidal Ideation: Denies Homicidal Ideation: Denies Insight: Impaired Judgement: Impaired Impulse Control: Good - Laboratory Result Diagrams: 03/26/17 06:11 03/26/17 06:11 Laboratory Results - last 24 hr 03/26/17 03/26/17 03/27/17 17:09 20:03 06:31 Glucometer 96 188 90 03/27/17 03/27/17 11:44 13:16 Glucometer 112 131 Assessment and Plan (1) Seizure disorder Current visit: Yes Status: Chronic (2) COPD (chronic obstructive pulmonary disease) Current visit: No Status: Chronic (3) Headache Current visit: No Status: Acute (4) Blurred vision, bilateral Current visit: No Status: Acute (5) Delirium Problem details: due to Phenytoin toxicity - now resolved Current visit: Yes Status: Acute (6) Schizoaffective disorder Current visit: Yes Status: Acute (7) Head injury Qualifiers: Encounter type: sequela Qualified Code(s): S09.90XS - Unspecified injury of head, sequela Current visit: Yes Status: Acute Hospital Course Summary Disclaimer: The visit summary below is not to be considered part of the above Progress Note. Hospital Course: Impression Elevated Dilantin level Schizoaffective disorder Depression/anxiety Hypertension Diabetes mellitus, type II on insulin.-A1c 5.9 (02/28/17) Seizure disorder -denies following with neuro CVA (cerebral vascular accident) COPD (chronic obstructive pulmonary disease) Dyslipidemia Left ventricular hypertrophy PUD (peptic ulcer disease) GERD/Esophageal ulcer Vitamin D deficiency Tobacco use 03/20/17 Hospitalist consult Agree to admission to [facility] for [facility] management and safe environment. She is very worried about having a seizure with her Dilantin being held. I reassured her we will be checking this routinely and will restart the Dilantin when she is within the therapeutic range. Her repeat Dilantin level today is still just slightly elevated. Will recheck again tomorrow. Monitor blood sugars routinely. Will adjust insulin as needed. Continue home medications for her other chronic health problems and continue to monitor. Upon discharge, her care will return to Dr. Henry assuming she returns to [facility] 03/21/17 Psych: Hospitalist is managing phenytoin, which is returning to normal limits. In regards to psych meds, will restart Abilify 5mg PO q AM and Klonopin 0.5mg PO q AM. Will not increase dose of lorazepam and would like to switch HS dose to Klonopin if possible. Patient may have phone from 7-9 pm; will write communication order. Monitor mood, behavior and response to treatment. 03/22/17 Psych: Increase Abilify to 10mg PO tomorrow and continue other meds how they are. Would like to decrease total daily dose of lorazepam and switch her to Klonopin. 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 Continue to monitor mood, behavior and response to treatment. 03/23/17 Psych: Continue Abilify 10mg PO daily and Klonopin 0.5mg PO q AM; would like to decrease total daily dose of lorazepam and switch her to Klonopin. 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 Will order overnight oximetry tonight. Continue to monitor mood , behavior and response to treatment. 03/24/17 10:16 Pt remains focused on Ativan. Will increase Gabapentin to 300mg PO TID to help with anxiety 03/25/17 10:33 Pt continues to report anxiety and ask for more Ativan. Discussed at this time we could not use more than 4mg per day and if pt wanted some during thee day we would need to decrease her HS dose. Pt in agreement. Will D/C Clonazepam and start Ativan 0.5mg PO BID at 0900 and 1500 and 3mg at HS. Start Trazodone 50mg at HS to help with sleep 03/25/17 16:39 03/25/17 She appears fairly stable medically. BG is fairly well controlled. Her main concern is getting Ativan regularly. Will plan to assess labs in AM. B12 is low on screening labs- will start IM replacement. Vitals reviewed- BP is controlled. 03/26/17 17:22 PT improving. Continue current care 03/27/17 16:43 Doing well. Plan D/C tomorrow
[2017-03-27] MEDS: ARTIFICIAL TEARS 15ml EACH EYE PRN (19:34)
[2017-03-27] MEDS: ATORVASTATIN 40 MG TABLET PO SCH (20:42)
[2017-03-27] MEDS: LORazepam 1 MG TABLET PO SCH (20:42)
[2017-03-27] MEDS: TRAZODONE 50 MG TABLET PO SCH (20:43)
[2017-03-27] MEDS: MECLIZINE 25 MG TABLET PO PRN (20:45)
[2017-03-27] MEDS ORDERED: INSULIN DETEMIR 100unit/ml INJECTION SQ ONE (23:22)
[2017-03-28] MEDS: OMEPRAZOLE 20 MG CAPSULE PO SCH (06:25)
[2017-03-28] MEDS: ACETAMINOPHEN 500 MG TABLET PO PRN (06:27)
[2017-03-28] MEDS: ALBUTEROL/IPRATROPIUM 2.5mg-0.5mg/3ml NEB AEROSOL SCH (07:48)
[2017-03-28] MEDS: POLYETHYL GLYCOL 3350 17gm PACKET PO SCH (08:54)
[2017-03-28] MEDS: ASPIRIN 325 MG TABLET PO SCH (08:55)
[2017-03-28] MEDS: PHENYTOIN 300 MG CAPSULE PO SCH (08:55)
[2017-03-28] MEDS: DOCUSATE SODIUM 100 MG CAPSULE PO SCH (08:55)
[2017-03-28] MEDS: LOSARTAN 50 MG TABLET PO SCH (08:55)
[2017-03-28] MEDS: GABAPENTIN 300 MG CAPSULE PO SCH (08:55)
[2017-03-28] MEDS: LORazepam 0.5 MG TABLET PO SCH (08:55)
[2017-03-28] MEDS: ARIPiprazole 5 MG TABLET PO SCH (08:56)
[2017-03-28] MEDS: METHYL SALICYLATE/MENTHOL OINT 28gm TP SCH (08:57)
[2017-03-28] MEDS: NICOTINE 21 MG PATCH TD SCH (08:57)
[2017-03-28] MEDS: CYANOCOBALAMIN (B-12) 1,000mcg/ml INJECTION IM SCH (08:57)
[2017-03-28] MEDS: NICOTINE PATCH REMOVAL TD SCH (08:58)
[2017-03-28] MEDS: INSULIN DETEMIR 100unit/ml INJECTION SQ SCH (08:59)
--- NOTE | 2017-03-28 09:22 | Discharge Instructions ---
Discharge Plan - Med Rec/Dispo Referrals/Follow Up: Hudson Henry MD [Other] (Dr. Rina Henry will see patient on rounds at the facility for Hosp. follow-up. . JOHANA Uriarte will see pattient on rounds for Mental Health follow-up. [phone]) Additional Instructions: Discharge Diagnosis: Schizoaffective Disorder Reasons for Admission: Very demanding, argumentative, and manipulative with staff at [facility]. Made several calls to the local police department. IN CASE OF PSYCHIATRIC EMERGENCY, CONTACT GENERATIONS STAFF AT [phone] ( available 24 hrs daily). Prescriptions: New Gabapentin [Neurontin] 300 mg PO TID #90 cap LORazepam [Ativan] 0.5 mg PO 0900,1500 #60 tablet Trazodone [Desyrel] 50 mg PO HS #30 tab Cyanocobalamin (B-12) [Vit. B-12] 1,000 mcg IM Q7D ml Insulin Aspart [NovoLOG] 10 unit SQ TIDWM vial Loperamide [Imodium] 2 mg PO TID PRN capsule PRN Reason: FOR LOOSE STOOLS Methyl Salicylate/Menthol [Analgesic [place]] 1 applic TP BID oint...g. Nicotine Patch Removal 1 removal TD DAILY patch Phenytoin Cap [Phenytek] 300 mg PO WB capsule Potassium Chloride [K-Dur] 20 meq PO BIDWM tablet LORazepam [Ativan] 1 mg PO Q6H PRN tablet PRN Reason: Extreme Agitation Artificial Tears [Tears Naturale] 1 drops EACH EYE PRN PRN bottle PRN Reason: dry eyes Insulin Detemir [Levemir] 20 unit SQ BID vial Mag-Al + Sim Oral Liq [Maalox Plus] 30 ml PO Q4H PRN udc PRN Reason: Indigestion Nystatin Cream [Mycostatin] 1 applic TP BID tube Phenytoin Cap [Phenytek] 300 mg PO HS capsule Continue Atorvastatin Calcium 40 mg PO HS #90 Albuterol Sulfate [Proair Hfa] 2 puff INH QID PRN PRN Reason: Shortness Of Air Furosemide [Lasix] 40 mg PO WS Nitroglycerin 0.4 mg SL Q5MIN3 PRN PRN Reason: Chest Pain Methyl Salicylate/Menthol [Icy Hot Cream] 1 applic TOP BID Albuterol/Ipratropium [Duoneb] 1 unit AEROSOL BID Peg 3350 238 G Bottle [Miralax] 17 gm PO DAILY LORazepam [Ativan] 4 mg PO HS Omeprazole 20 mg PO DAILY Potassium Chloride [K-Tab ER] 20 meq PO BID Losartan Potassium [Cozaar] 50 mg PO BID Docusate Sodium 500 mg PO DAILY Cholecalciferol (Vitamin D3) [Vitamin D3] 2,000 unit PO DAILY Aspirin 325 mg PO DAILY ARIPiprazole [Aripiprazole] 10 mg PO HS #30 tab Meclizine [Antivert] 50 mg PO BID PRN PRN Reason: Prn Orders Nicotine Patch [Nicoderm] 21 mg TD DAILY Acetaminophen [Tylenol] 650 mg PO Q4H PRN PRN Reason: Pain Bismuth Subsalicylate [Kaopectate] 524 mg PO Q3H PRN PRN Reason: Prn Orders Discontinued LORazepam [Ativan] 2 mg PO Q6H PRN PRN Reason: Anxiety Insulin Lispro [Humalog Kwikpen U-100] 20 unit SQ BIDBL Insulin Lispro [Humalog Kwikpen U-100] 30 unit SQ WS Insulin Detemir [Levemir Flextouch] 22 unit SQ BID Gabapentin [Neurontin] 100 mg PO TID Phenytoin Sodium Extended 400 mg PO BID Discharge Instructions/Outpatient Orders: Provider Discharge Instructions Location: Determined By Patient - Disposition 04 To [facility] Home/Facility
[2017-03-28 09:47] VITALS: BP 119/72; PULSE 73; RESP 20; TEMP 98.3; O2SAT 96
[2017-03-28] MEDS: MAG-AL + SIM ORAL LIQUID 30ml PO PRN (11:14)
[2017-03-28] MEDS: INSULIN ASPART 100unit/ml INJECTION SQ SCH ×2 (11:15→13:12)
--- NOTE | 2017-03-28 11:45 | Extended Care Facility Orders ---
Admission Orders Admit to:: Snf Allergies/Adverse Reactions: Allergies grass pollen Allergy (Unknown, Verified 03/19/17 15:40) DETERGENT Allergy (Unknown, Uncoded 02/13/17 08:59) PER H&P PETS Allergy (Unknown, Uncoded 02/13/17 08:59) PER H&P Admitting Diagnosis: Psychosis Admitting Physician: Norma Salguero MD Attending Physician: Norma Salguero MD Code Status: Full Code Rehab Potential: fair Rehab Prognosis: fair May use Facility Protocol or Standing Orders: Yes May have flu vaccine: Yes Evaluations/Treatment: as needed Snf Certification: I certify that SNF services are required to be given on an Inpatient basis because of the patients need for senior living care on a continuing basis for the condition(s) for which he/she received inpatient hospital services prior to his/her transfer to the SNF. SNF inpatient care is necessary for the following reasons Indication for Snf: Neuro Assessment - Additional Information Resident is Aware of Diagnosis: Yes Referrals: Hudson Henry MD [Other] (Dr. Rina Henry will see patient on rounds at the facility for Hosp. follow-up. . JOHANA Uriarte will see pattient on rounds for Mental Health follow-up. )
--- NOTE | 2017-03-28 11:46 | Discharge Instructions ---
Discharge Plan - Med Rec/Dispo Referrals/Follow Up: Hudson Henry MD [Other] (Dr. Rina Henry will see patient on rounds at the facility for Hosp. follow-up. . JOHANA Uriarte will see pattient on rounds for Mental Health follow-up. ) Additional Instructions: Discharge Diagnosis: Schizoaffective Disorder Reasons for Admission: Very demanding, argumentative, and [facility] Made several calls to the local police department. IN CASE OF PSYCHIATRIC EMERGENCY, CONTACT GENERATIONS STAFF AT [phone] ( available 24 hrs daily). Prescriptions: New Gabapentin [Neurontin] 300 mg PO TID #90 cap LORazepam [Ativan] 0.5 mg PO 0900,1500 #60 tablet Trazodone [Desyrel] 50 mg PO HS #30 tab Cyanocobalamin (B-12) [Vit. B-12] 1,000 mcg IM Q7D ml Insulin Aspart [NovoLOG] 10 unit SQ TIDWM vial Loperamide [Imodium] 2 mg PO TID PRN capsule PRN Reason: FOR LOOSE STOOLS Methyl Salicylate/Menthol [Analgesic [place]] 1 applic TP BID oint...g. Nicotine Patch Removal 1 removal TD DAILY patch Phenytoin Cap [Phenytek] 300 mg PO WB capsule Potassium Chloride [K-Dur] 20 meq PO BIDWM tablet LORazepam [Ativan] 1 mg PO Q6H PRN tablet PRN Reason: Extreme Agitation Artificial Tears [Tears Naturale] 1 drops EACH EYE PRN PRN bottle PRN Reason: dry eyes Insulin Detemir [Levemir] 20 unit SQ BID vial Mag-Al + Sim Oral Liq [Maalox Plus] 30 ml PO Q4H PRN udc PRN Reason: Indigestion Nystatin Cream [Mycostatin] 1 applic TP BID tube Phenytoin Cap [Phenytek] 300 mg PO HS capsule Continue Atorvastatin Calcium 40 mg PO HS #90 Albuterol Sulfate [Proair Hfa] 2 puff INH QID PRN PRN Reason: Shortness Of Air Furosemide [Lasix] 40 mg PO WS Nitroglycerin 0.4 mg SL Q5MIN3 PRN PRN Reason: Chest Pain Methyl Salicylate/Menthol [Icy Hot Cream] 1 applic TOP BID Albuterol/Ipratropium [Duoneb] 1 unit AEROSOL BID Peg 3350 238 G Bottle [Miralax] 17 gm PO DAILY LORazepam [Ativan] 4 mg PO HS Omeprazole 20 mg PO DAILY Potassium Chloride [K-Tab ER] 20 meq PO BID Losartan Potassium [Cozaar] 50 mg PO BID Docusate Sodium 500 mg PO DAILY Cholecalciferol (Vitamin D3) [Vitamin D3] 2,000 unit PO DAILY Aspirin 325 mg PO DAILY ARIPiprazole [Aripiprazole] 10 mg PO HS #30 tab Meclizine [Antivert] 50 mg PO BID PRN PRN Reason: Prn Orders Nicotine Patch [Nicoderm] 21 mg TD DAILY Acetaminophen [Tylenol] 650 mg PO Q4H PRN PRN Reason: Pain Bismuth Subsalicylate [Kaopectate] 524 mg PO Q3H PRN PRN Reason: Prn Orders Discontinued LORazepam [Ativan] 2 mg PO Q6H PRN PRN Reason: Anxiety Insulin Lispro [Humalog Kwikpen U-100] 20 unit SQ BIDBL Insulin Lispro [Humalog Kwikpen U-100] 30 unit SQ WS Insulin Detemir [Levemir Flextouch] 22 unit SQ BID Gabapentin [Neurontin] 100 mg PO TID Phenytoin Sodium Extended 400 mg PO BID Discharge Instructions/Outpatient Orders: Provider Discharge Instructions Location: Determined By Patient - Disposition [facility] ([facility])
[2017-03-28] MEDS: LORazepam 1 MG TABLET PO PRN (12:49)
[2017-03-28] MEDS ORDERED: INSULIN DETEMIR 100unit/ml INJECTION SQ ONE (23:17)
[2017-04-07] MEDS ORDERED: CYANOCOBALAMIN (B-12) 1,000mcg/ml INJECTION IM SCH (09:00)
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
[2017-05-28] MEDS ORDERED: CYANOCOBALAMIN (B-12) 1,000mcg/ml INJECTION IM SCH (09:00)
== END 2017-03-28 13:10 | DRG 897 ==
LOC: ED 15:21 → GEN 18:30
PROVIDERS: ADMIT Psychiatry & Neurology Psychiatry; ATTEND Psychiatry & Neurology Psychiatry